=== PATIENT | male | born 1930 | race Caucasian/White ===

== ENCOUNTER 2016-07-29 21:55 | Inpatient (IN) | payer MEDICARE ==
[~2016-07-29] VITALS: Ht 172.7 cm; Wt 75.6 kg
[~2016-07-29 21:55] MED LIST: /AMLO25TA PO; /TAMS4CA OR; ACET65TA PO; ALDA25TA2 PO; AMLO10TAB OR; AMOX500C OR; ASPI81TA83 PO; COLA100C2 PO; DOXY150C PO; LANO0.1211 PO; LASI40TA PO; LEVO500T PO; MILKSUS PO; Oxygen; PRADAXA PO; PRED50TA PO; PROS5TAB OR
[2016-07-29] MEDS ORDERED: FUROSEMIDE 20 MG/2 ML VIAL (J1940) As Ordered ONE (22:29)
[2016-07-29] MEDS ORDERED: IPRATROPIUM 0.5MG/ALBUTEROL 2.5MG INH SOL UD 3ML (DUONEB)(J7620) As Ordered ONE (22:32)
[2016-07-29 22:34] LABS: BASO % 0.3 % (0.0-1.0); EOS % 0.2 % (0.0-3.0); LARGE UNSTAINED CELL # 0.2 K/mm3 (0.0-0.4); LARGE UNSTAINED CELL % 1.5 % (0.0-4.0); LYMPH % 6.6 % (24.0-44.0); MEAN CORPUSCULAR HEMOGLOBIN 27.6 pg (27.0-33.0); MEAN CORPUSCULAR HGB CONC 32.4 g/dl (32.0-36.5); MEAN CORPUSCULAR VOLUME 85.1 fl (80.0-96.0); MONO % 8.3 % (0.0-5.0); NEUTROPHILS # 10.4 K/mm3 (1.8-7.7); NEUTROPHILS % 83.2 % (36.0-66.0); PLATELET COUNT, AUTOMATED 184 k/mm3 (150-450); RED CELL DISTRIBUTION WIDTH 14.1 % (11.5-14.5); WHITE BLOOD COUNT 12.5 K/mm3 (4.0-10.0)
[2016-07-29 22:47] LABS: ANION GAP 7 MEQ/L (8-16); BLOOD UREA NITROGEN 29 MG/DL (7-18); CALCIUM LEVEL 8.4 MG/DL (8.8-10.2); CARBON DIOXIDE LEVEL 35 MEQ/L (21-32); CHLORIDE LEVEL 100 MEQ/L (98-107); CREATININE FOR GFR 1.06 MG/DL (0.70-1.30); GLOMERULAR FILTRATION RATE > 60.0 (>35); GLUCOSE, FASTING 155 MG/DL (83-110); POTASSIUM SERUM 3.5 MEQ/L (3.5-5.1); SODIUM LEVEL 142 MEQ/L (136-145)
[2016-07-29 22:51] LABS: ABG BASE EXCESS 6.6 (-2.0-2.0); ABG DEVICE NASAL CANN; ABG HCO3 30.5 MEQ/L (22.0-26.0); ABG PARTIAL PRESSURE CO2 40.9 mmHg (35.0-45.0); ABG PARTIAL PRESSURE O2 54.3 mmHg (75.0-100.0); ABG STANDARD HCO3 30.3 MEQ/L (22.0-26.0); ABG TOTAL CO2 31.8 MEQ/L (23.0-31.0); ABG pH (ARTERIAL) 7.491 UNITS (7.350-7.450)
[2016-07-29] MEDS ORDERED: ALBUTEROL SULFATE 2.5 MG/0.5 ML INH NEB SOLN As Ordered ONE (23:03)
[2016-07-30] VITALS (7 sets, daily range): BP systolic 127–163; BP diastolic 70–81
[2016-07-30] MEDS ORDERED: FLOM5CAP PO (00:32)
[2016-07-30] MEDS ORDERED: SPIR25TA2 PO (00:32)
[2016-07-30] MEDS ORDERED: DIGO0.12 PO (00:32)
[2016-07-30] MEDS ORDERED: LASI40TA PO (00:32)
[2016-07-30] MEDS ORDERED: IPRASOL4 INH (00:32)
[2016-07-30] MEDS ORDERED: PRAD75CA3 PO (00:32)
[2016-07-30] MEDS ORDERED: ACETAMINOPHEN TAB 650MG DOSE (2X325MG) PO PRN (01:15)
[2016-07-30] MEDS ORDERED: IPRATROPIUM 0.5MG/ALBUTEROL 2.5MG INH SOL UD 3ML (DUONEB)(J7620) NEB PRN (01:15)
[2016-07-30] MEDS ORDERED: ONDANSETRON 4MG/2ML VIAL (J2405) IV PRN (01:15)
--- NOTE | 2016-07-30 01:54 | HPEPDOC ---
General Date of Admission 07/30/2016 Chief Complaint The patient is a 86-year-old male admitted with a reason for visit of Breathing Difficultly. History of Present Illness 86-year-old male with past medical history of diastolic congestive heart failure with whom he follows with Dr. Reyes of cardiology as an outpatient, hypertension, COPD on 5 L of oxygen at home with whom he follows with Dr. Deal of pulmonary as an outpatient, obstructive sleep apnea, atrial fibrillation on Pradaxa, BPH and a history of AAA presented to the ER with a chief complaint of shortness of breath. The patient states that he just got back from [place], [place] after visiting his son for the past 1 month. He reports that his shortness of breath started approximately 7 days ago, and was accompanied by a nonproductive cough. He denies noting any fevers, chest pain, palpitations, or any diaphoresis during this time. The patient states that he was hospitalized in the [place], [place] area for a total of 4 days where he was found to have the flu. He reports that he received supportive treatment and steroids, but states that he still feels the same since when his symptoms initially started. The patient notes that at his baseline, he is able to ambulate around his home without any assistive device while on his 5 L of oxygen. However, over the last 1 week he feels significant shortness of breath as soon as he stands up. The patient denies any other acute symptoms of lightheadedness, dizziness, abdominal pain, or any nausea/vomiting/diarrhea. In the ER, the patient was noted to be hypoxic, with his pulse oximeter readings going into the the 70s when the patient was standing up. The patient will be admitted to the hospitalist service for further management and evaluation of hypoxia secondary to COPD exacerbation. Home Medications Scheduled Dabigatran Etexilate (Pradaxa) 75 Mg Cap 75 MG PO BID (Reported) Digoxin (Digoxin) 0.125 Mg Tab 0.125 MG PO DAILY (Reported) Furosemide (Lasix) 40 Mg Tab 40 MG PO DAILY (Reported) Spironolactone (Spironolactone) 25 Mg Tab 25 MG PO DAILY (Reported) Tamsulosin Hydrochloride (Flomax) 0.4 Mg Cap 1 CAP PO QPM (Reported) once daily 1/2 hour following the same meal each day Scheduled PRN Albuterol/Ipratropium (Ipratropium [place]/Albut 0.5-2.5 (3) mg/3Ml) 1 Dario Dario 1 DARIO INH Q4H PRN PRN SHORTNESS OF BREATH (Reported) Allergies Coded Allergies: No Known Drug Allergy (Verified Allergy, Unknown, 09/23/12) Past Medical History Medical History As noted in HPI. Surgical History Right inguinal hernia repair and umbilical hernia repair in 2001, AAA repair in 2006, cardiac catheterization in 2010 Family History Significant Family History: No pertinent family hx Social History * Smoker: other (smoked a pipe daily for 40 years, quit approximately 15 years ago.) Alcohol: occationally Drugs: denies Currently retired, lives with his in the [place], [place] area Review of Symptoms Other systems 10 point review of systems negative unless otherwise specified in HPI. Physical Examination General Exam: Positive: Alert, Cooperative, No Acute Distress ENT Exam: Positive: Atraumatic, Mucous membr. moist/pink Neck Exam: Negative: JVD Chest Exam: Positive: Diminished, Wheezing (diffuse wheezing noted bilaterally) Heart Exam: Positive: Other (patient noted to have 2/6 systolic murmur noted on the left sternal border.), Tachycardic Abdomen Exam: Positive: Soft, Negative: Tenderness Extremity Exam: Positive: Swelling (2+ pitting edema in the lower she was bilaterally), Negative: Tenderness Vital Signs As noted in EMR. Laboratory Data Labs 24H Laboratory Tests 2 07/29/16 22:12: Anion Gap 7L, B-Type Natriuretic Peptide 87.6, White Blood Count 12.5H, Red Blood Count 5.26, Hemoglobin 14.5, Hematocrit 44.8, Mean Corpuscular Volume 85.1 , Mean Corpuscular Hemoglobin 27.6, Mean Corpuscular Hemoglobin Concent 32.4, Red Cell Distribution Width 14.1, Platelet Count 184, Neutrophils (%) (Auto) 83.2H, Lymphocytes (%) (Auto) 6.6L, Monocytes (%) (Auto) 8.3H, Eosinophils (%) ( Auto) 0.2, Basophils (%) (Auto) 0.3, Neutrophils # (Auto) 10.4H, Lymphocytes # ( Auto) 1.0L, Monocytes # (Auto) 1.0H, Eosinophils # (Auto) 0.0, Basophils # (Auto ) 0.0, Blood Urea Nitrogen 29H, Creatinine 1.06, Sodium Level 142, Potassium Level 3.5, Chloride Level 100, Carbon Dioxide Level 35H, Calcium Level 8.4L, Total Creatine Kinase 61, Creatine Kinase MB 3.0, Creatine Kinase MB Relative Index 4.91H, Glomerular Filtration Rate > 60.0, Large Unclassified Cells # 0.2, Large Unclassified Cells % 1.5, Troponin I 0.04 07/29/16 22:33: Arterial Blood pH 7.491H, Arterial Blood Partial Pressure CO2 40.9, Arterial Blood Partial Pressure O2 54.3L, Arterial Blood Total CO2 31.8H, Arterial Blood HCO3 30.5H, Arterial Blood Base Excess 6.6H, Arterial Blood Oxygen Saturation 89.0L, Blood Gas Bicarbonate Standard 30.3H, Oxygen Delivery Device NASAL ELO CBC/BMP Laboratory Tests 07/29/16 22:12 Calcium Level 8.4 L, Total Creatine Kinase 61, Red Blood Count 5.26, Mean Corpuscular Volume 85.1, Mean Corpuscular Hemoglobin 27.6, Mean Corpuscular Hemoglobin Concent 32.4, Red Cell Distribution Width 14.1, Neutrophils (%) (Auto ) 83.2 H, Lymphocytes (%) (Auto) 6.6 L, Monocytes (%) (Auto) 8.3 H, Eosinophils (%) (Auto) 0.2, Basophils (%) (Auto) 0.3, Neutrophils # (Auto) 10.4 H, Lymphocytes # (Auto) 1.0 L, Monocytes # (Auto) 1.0 H, Eosinophils # (Auto) 0.0, Basophils # (Auto) 0.0 Microbiology Microbiology 07/29/16 Blood Culture, Received Pending 07/29/16 Blood Culture, Received Pending Plan / VTE VTE Prophylaxis Ordered?: Yes (on) Plan Plan Hypoxia secondary to COPD Exacerbation ABG notable for hypoxemia Chest x-ray noted, we will order a CT scan of the chest for better delineation of underlying pulmonary process Blood cultures, sputum cultures, respiratory panel, urine Legionella, strep pneumo studies ordered Given the fact that the patient has not improved with supportive treatment during his recent hospitalization, we will add empiric antibiotics Vancomycin and Zosyn for HCAP Coverage Solumedrol 40 mg IV every 12 hours Continue albuterol, nebulizer therapy, Mucinex Echocardiogram ordered to evaluate underlying cardiac component of shortness of breath We will continue to monitor the patient's respiratory status Hx of Diastolic Congestive Heart Failure Echocardiogram from 2012 notable for diastolic dysfunction Repeat echocardiogram ordered We will hold the patient's Lasix and spironolactone at this time, as he does appear dry with a BUN creatinine ratio of 29/1.06. BNP also noted to be within normal limits Follows with Dr. Reyes of cardiology as an outpatient Hypertension, stable Continue current regimen COPD on 5 L of oxygen at home Cont management as detailed above Follows with Dr. Deal of pulmonary as an outpatient Obstructive sleep apnea Cont CPAP use at night Atrial fibrillation Rate controlled, On Pradaxa BPH Continue Flomax History of AAA repair DVT prophylaxis-already on Pradaxa CODE STATUS-DNR/DNI This patient will be admitted under the service of Dr. Jiang, who will start to follow the patient on 07/30/2016 at 7 AM. ZAHRAA QUIÑONEZ MD Jul 30, 2016 01:54 ZAHRAA QUIÑONEZ MD Jul 30, 2016 01:54
--- NOTE | 2016-07-30 02:00 | REPUSA ---
CT of the chest without contrast Clinical statement: Shortness of breath. Technique: Multiple axial CT images were obtained with 5 mm cuts through the chest without administra tion of contrast. Comparison: 10/01/2011. Findings: There is no thoracic lymphadenopathy. The visualized portions of the thyroid gland is unrem arkable. There are no pericardial or pleural effusions. The lungs are clear. Limited imaging of the u pper abdomen does not demonstrate any acute abnormalities. There are no suspicious osseous lesions. Impression: No acute findings. No acute intrapulmonary disease.
[2016-07-30] MEDS ORDERED: ZOSYN 3.375 GM VIAL (J2543) As Ordered ONE (02:09)
[2016-07-30] MEDS ORDERED: methylPREDNISolone INJ 125 MG/2 ML VIAL (J2930) As Ordered ONE (02:09)
[2016-07-30] MEDS: methylPREDNISolone INJ 40 MG/1 ML VIAL (J2920) IV SCH ×2 (02:15→12:26)
[2016-07-30] MEDS: PIPERACILLIN/TAZOBACTAM SOD 3.375 GM in D5W MINI-BAG PLUS 50 ML IV SCH ×3 (02:16→17:22)
[2016-07-30] MEDS ORDERED: VANCOMYCIN HCL 1,000 MG, VIAL MATE ADAPTER 1 EACH in D5W 250 ML IV SCH (03:00)
[2016-07-30] MEDS ORDERED: VANCOMYCIN 1000 MG/20 ML VIAL (J3370) As Ordered ONE (03:24)
[2016-07-30] MEDS ORDERED: IPRATROPIUM 0.5MG/ALBUTEROL 2.5MG INH SOL UD 3ML (DUONEB)(J7620) As Ordered ONE ×2 (03:25→10:42)
[2016-07-30] MEDS: IPRATROPIUM 0.5MG/ALBUTEROL 2.5MG INH SOL UD 3ML (DUONEB)(J7620) NEB SCH ×5 (03:27→20:00)
--- NOTE | 2016-07-30 05:23 | PHACANCOPD ---
PHARMACY VANCOMYCIN DOSING Pt Demographics Demographics Patient Age:86 , Weight:73.700 , Gender: male Adjusted Body Weight Date: 07/30/16, Adjusted Body Weight: [70.52] Kg Vancomycin Vancomycin indication: PNEUMONIA Vancomycin Target Ranges: 15-20 mcg/ml Vancomycin Load Y/N: No Load Dose Date Time Vancomycin Load Dose: Date: Time: Vancomycin Dose Date: 07/30/16. Current Vancomycin Dose: [750MG q12h] Intermittent Dosing?: No Labs Labs Laboratory Tests 07/29/16 22:12 Calcium Level 8.4 L, Total Creatine Kinase 61, Red Blood Count 5.26, Mean Corpuscular Volume 85.1, Mean Corpuscular Hemoglobin 27.6, Mean Corpuscular Hemoglobin Concent 32.4, Red Cell Distribution Width 14.1, Neutrophils (%) (Auto ) 83.2 H, Lymphocytes (%) (Auto) 6.6 L, Monocytes (%) (Auto) 8.3 H, Eosinophils (%) (Auto) 0.2, Basophils (%) (Auto) 0.3, Neutrophils # (Auto) 10.4 H, Lymphocytes # (Auto) 1.0 L, Monocytes # (Auto) 1.0 H, Eosinophils # (Auto) 0.0, Basophils # (Auto) 0.0 Micro Microbiology 07/29/16 Blood Culture, Received Pending 07/29/16 Blood Culture, Received Pending Creatinine Clearance Date:07/30/16. Creatinine Clearance: [48]CALCULATED. Pending Labs TROUGH ORDERED FOR 07/31@1700 Assessment and Plan Maintaining Current Dose?: Yes Reason for dose change: No Dose Change Pharmacist Note Pharmacist Note Date: 07/30/16. Pharmacist note:86 YOM SCR=1.06 Calculated CRCL=48:admitted w/sob /pneumonia: treating w/pip/tazo 3.375 q8h& Vancomycin 1 gmX1in ED, then 750mg IV Q12H,trough scheduled prior to 4h dose (07/31@1700):will continue to monitor SCR and levels ZAYDA [facility] Jul 30, 2016 05:22
[2016-07-30 07:03] LABS: MEAN CORPUSCULAR HEMOGLOBIN 27.3 pg (27.0-33.0); MEAN CORPUSCULAR VOLUME 85.4 fl (80.0-96.0); RED CELL DISTRIBUTION WIDTH 13.8 % (11.5-14.5); WHITE BLOOD COUNT 10.9 K/mm3 (4.0-10.0)
[2016-07-30 07:27] LABS: ANION GAP 7 MEQ/L (8-16); BLOOD UREA NITROGEN 31 MG/DL (7-18); CALCIUM LEVEL 8.2 MG/DL (8.8-10.2); CARBON DIOXIDE LEVEL 34 MEQ/L (21-32); CHLORIDE LEVEL 98 MEQ/L (98-107); CREATININE FOR GFR 1.11 MG/DL (0.70-1.30); GLOMERULAR FILTRATION RATE > 60.0 (>35); GLUCOSE, FASTING 163 MG/DL (83-110); MAGNESIUM LEVEL 2.4 MG/DL (1.8-2.4); POTASSIUM SERUM 3.4 MEQ/L (3.5-5.1); SODIUM LEVEL 139 MEQ/L (136-145)
[2016-07-30] MEDS: ADVAIR DISKUS 250/50 INH PWD INH SCH ×2 (08:24→21:37)
[2016-07-30] MEDS: guaiFENesin ER 600 MG TAB PO SCH ×2 (08:30→22:18)
[2016-07-30] MEDS: DIGOXIN 0.125 MG TAB PO SCH (08:30)
[2016-07-30] MEDS: DABIGATRAN ETEXILATE 75 MG CAP (PRADAXA) PO SCH ×2 (08:30→22:18)
--- NOTE | 2016-07-30 08:57 | REP ---
AP PORTABLE CHEST: 07/29/2016 at 10:41 PM. Clinical history: Dyspnea. Comparison chest x-rays 04/01/2013, 10/05/2011, CT angiogram 10/01/2011. Findings: Lungs are hyperinflated with changes of COPD. Blunting of the right CP angle which could be scar or effusion. Epicardial fat pad along the left heart border to the chest wall as on previous CT and chest x-ray. Hyperinflation with COPD and fibrosis seen. There is venous hypertension but no charlette edema. Pulmonary artery hypertension is noted and prominent. There is no gross cardiomegaly. The aorta is tortuous and ectatic but without interval change. Airway intact. Degenerative changes in the shoulders and spine. Impression: 1. Hyperinflation with COPD and some minor fibrotic change. There is blunting of the right CP angle which may be a small effusion or scar. 2. Pulmonary hypertension, tortuous calcified aorta, but no charlette edema, dense consolidation or other acute finding. Signed by Wander Lopez MD 07/30/2016 07:25 P
[2016-07-30] MEDS ORDERED: FUROSEMIDE 40 MG TAB PO SCH (09:00)
[2016-07-30] MEDS ORDERED: ENOXAPARIN 30 MG/0.3 ML SYR (J1650) SC SCH (09:00)
[2016-07-30] MEDS ORDERED: SPIRONOLACTONE 25 MG TAB PO SCH (09:00)
[2016-07-30] MEDS ORDERED: POTASSIUM CHLORIDE 10 MEQ SR TABLET PO ONE (13:15)
--- NOTE | 2016-07-30 13:51 | EDDOCDS ---
Physician Documentation [facility] Name: Nilson Knight Age: 86 yrs Sex: Male : 1930 Arrival Date: 07/29/2016 Time: 21:55 Bed Admit Hold Private MD: Haja Frazier Disposition: 07/29/16 23:35 Hospitalization ordered by Clemente Christian for Inpatient Admission. Preliminary diagnosis is Chronic obstructive pulmonary disease with (acute) exacerbation. - Bed requested for PCU. - Status is Inpatient Admission. dy - Condition is Stable. - Problem is an acute exacerbation. - Symptoms are unchanged. Historical: - Allergies: no known allergies; - Home Meds: 1. spironolactone Oral once daily 2. tamsulosin 0.4 mg oral cp24 1 cap once daily 3. digoxin 125 mcg Oral tab 1 tab once daily 4. prednisone 10 mg Oral DsPk daily 5. Pradaxa 75 mg oral cap 1 cap 2 times per day 6. Lasix 40 mg Oral tab 1 tab once daily - PSHx: Thyroid Surgery; Appendectomy; - Social history: Smoking status: Patient states former smoker of tobacco. No barriers to communication noted, The patient speaks fluent Bengali. - Family history: No immediate family members are acutely ill. - : The pt / caregiver states he / she is on anticoagulants: Pradaxa (Dabigatran). - Exposure Risk Screening:: None identified. Vital Signs: 07/29 22:02 BP 157 / 88; Pulse 93; Resp 28; Pulse Ox 74% ; sew 22:15 Pulse 105 MON; Pulse Ox 87% ; mv5 22:30 Pulse 105 MON; Pulse Ox 88% ; mv5 22:45 Pulse 104 MON; Pulse Ox 87% ; mv5 23:40 BP 131 / 61 (auto/); mv5 23:40 Pulse 113 MON; Pulse Ox 84% ; mv5 23:45 BP 146 / 64 (auto/); mv5 23:46 Pulse 112 MON; Pulse Ox 83% ; mv5 23:51 BP 139 / 63 (auto/); mv5 23:51 Pulse 111 MON; Pulse Ox 84% ; mv5 07/30 00:06 BP 119 / 57 (auto/); mv5 00:06 Pulse 109 MON; mv5 00:21 BP 137 / 63 (auto/); mv5 00:22 Pulse 109 MON; mv5 00:36 BP 130 / 65 (auto/); mv5 00:36 Pulse 131 MON; mv5 00:51 BP 127 / 59 (auto/); mv5 00:51 Pulse 110 MON; Pulse Ox 92% on 4 lpm NC; mv5 01:21 BP 121 / 66 (auto/); mv5 01:21 Pulse 111 MON; Pulse Ox 87% ; mv5 MDM: 07/29 22:04 ECG WITH READING ER PHYS+CARDIAG ordered. EDMS 22:22 -Blood Culture (Adults Only), peripheral from different site, or from device/port/PICC ke etc. if present ordered. 22:22 Call Respiratory ordered. ke 22:22 Rim Turning Machine Operator/Pulse Ox/q 15 min VS ordered. ke 22:22 IV Saline Lock ordered. ke 22:22 Oxygen at 4L/Min NC or Home dosage ordered. ke 22:22 Rhythm Strip to chart ordered. ke 22:22 Albuterol 5 mg Nebulizer once ordered. ke 22:22 Albuterol-Ipratropium 3 ml Inhalation once ordered. ke 22:22 Furosemide 40 mg IVP once ordered. ke 22:23 Chest, 1 View Ordered. EDMS 22:23 -Blood Culture Ordered. EDMS 22:23 B-Type Natiuretic Peptide Ordered. EDMS 22:23 Basic Metabolic Profile Ordered. EDMS 22:23 CBC with Diff Ordered. EDMS 22:23 Cardiac Injury Profile Ordered. EDMS 22:23 Troponin Ordered. EDMS 22:23 -Arterial Blood Gas Ordered. EDMS 22:27 -Blood Culture (Adults Only), peripheral from different site, or from device/port/PICC jlm etc. if present complete. 22:27 BLOOD CULTURES Ordered. EDMS 22:29 Call Respiratory complete. jlm 23:02 Financial registration complete. gjb 23:05 [facility] [place] Agreement was scanned into [employer] and attached to record. gjb 23:29 Basic Metabolic Profile Reviewed. ke 23:29 CBC with Diff Reviewed. ke 23:29 Cardiac Injury Profile Reviewed. ke 23:29 -Arterial Blood Gas Reviewed. ke 23:29 B-Type Natiuretic Peptide Reviewed. ke 23:29 Troponin Reviewed. ke 23:34 BED REQUEST+ADM ordered. EDMS 07/30 01:20 TROPONIN Ordered. EDMS 01:20 TROPONIN Ordered. EDMS 01:20 TROPONIN Ordered. EDMS 01:20 LEGIONELLA ANTIGEN URINE Ordered. EDMS 01:20 URINE STREP PNEUMONIAE ANTIGEN Ordered. EDMS 01:20 RESPIRATORY PANEL Ordered. EDMS 01:20 SPUTUM CULTURE AND GRAM STAIN Ordered. EDMS 01:21 PHYSICAL THERAPY EVAL & TREAT ordered. EDMS 01:23 Admission / Observation Status ordered. EDMS 01:23 ECHOCARD,DOPPLER/COLOR FLOW ordered. EDMS 01:23 CT Chest without contrast Ordered. EDMS 01:23 2 GRAM SODIUM DIET ordered. EDMS 02:57 COMPLETE BLOOD COUNT Ordered. EDMS 05:01 BASIC METABOLIC PROFILE Ordered. EDMS 05:01 MAGNESIUM LEVEL Ordered. EDMS 10:23 T-Sheet-- Draft Copy was scanned into [employer] and attached to record. Administered Medications: 07/29 22:30 Drug: Furosemide 40 mg [furosemide 10 mg/mL injection solution (4 mL)] Route: IVP; [facility] Site: right antecubital; 22:55 Follow up: Response: No Adverse Reaction [facility] 07/30 00:42 Follow up: Response: No Adverse Reaction [facility] 07/29 22:51 Drug: Albuterol-Ipratropium 3 ml [ipratropium-albuterol 0.5 mg-3 mg(2.5 mg base)/3 mL [facility] nebulization soln (3 mL)] Route: Inhalation; 23:05 Drug: Albuterol 5 mg [albuterol sulfate 2.5 mg/0.5 mL solution for nebulization (1 mL)] [facility] Route: Nebulizer; Signatures: Dispatcher [facility] Nallely Oakes, Chemist Steroids Unit Linnea Orozco RN TYLER [facility] Milly Beck, Jose C Reg Raj Bartholomew, RN Sd Nielsen, FUEL SYSTEM MAINTENANCE SUPERVISOR FUEL SYSTEM MAINTENANCE SUPERVISOR Princess Sherwood, Chemist Steroids Unit Mariaa Miranda Lisa, RN RN lmg Vannedery, Megan, RN RN mv5 Hollis, Jacob [facility] Ericka Piper RN [facility] The chart was reviewed and I authenticate all verbal orders and agree with the evaluation and treatment provided.Corrections: (The following items were deleted from the chart) 07/30 01:33 01:20 BLOOD CULTURES ordered. EDND EDMS 05:01 02:57 BASIC METABOLIC PROFILE ordered. EDMS EDMS 05:01 02:57 MAGNESIUM LEVEL ordered. EDMS EDMS Attachments: 07/29 23:05 [facility] Payment Agreement gjb 07/30 10:23 T-Sheet-- Draft Copy gb MTDD
--- NOTE | 2016-07-30 13:53 | EDDOCDS ---
Nurse's Notes [facility] Name: Nilson Knight Age: 86 yrs Sex: Male : 1930 Arrival Date: 07/29/2016 Time: 21:55 Bed Admit Hold Private MD: Haja Frazier Diagnosis: Chronic obstructive pulmonary disease with (acute) exacerbation Presentation: 07/29 22:03 Presenting complaint: Patient states: Has had the flu for about a week now--was [facility] hospitalized in [place]--just arrived from [place]. Adult Sepsis Screening: The patient does not have new or worsening altered mentation. Patient has a respiratory rate of greater than or equal to 22 (1 point). Systolic blood pressure is greater than 100. Patient has a qSOFA score of 0- Negative Sepsis Screen. Suicide/Homicide risk assessment- the patient denies having any suicidal and/or homicidal ideations and does not present with any other emotional, behavioral or mental health complaints. 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 Transition of care: patient was not received from another setting of care. 22:03 Acuity: RACIEL Level 2 [facility] 22:03 Method Of Arrival: Walkin/Carried/Asstd [facility] Triage Assessment: 22:05 General: Appears in no apparent distress, Behavior is cooperative. Pain: Denies pain. [facility] Neurological: No deficits noted. Respiratory: Onset: The symptoms/episode began/occurred last monday, Airway is patent Respiratory effort is even, unlabored. Derm: Skin is pink, warm & dry. Historical: - Allergies: no known allergies; - Home Meds: 1. spironolactone Oral once daily 2. tamsulosin 0.4 mg oral cp24 1 cap once daily 3. digoxin 125 mcg Oral tab 1 tab once daily 4. prednisone 10 mg Oral DsPk daily 5. Pradaxa 75 mg oral cap 1 cap 2 times per day 6. Lasix 40 mg Oral tab 1 tab once daily - PSHx: Thyroid Surgery; Appendectomy; - Social history: Smoking status: Patient states former smoker of tobacco. No barriers to communication noted, The patient speaks fluent [place]. - Family history: No immediate family members are acutely ill. - : The pt / caregiver states he / she is on anticoagulants: Pradaxa (Dabigatran). - Exposure Risk Screening:: None identified. Screenin:16 Screening information is obtained from the patient. Fall risk: No risks identified. mv5 Assistance ADL's: requires no assistance with activities of daily living. Abuse/DV Screen: The patient / caregiver reports he/she is: not in a situation that causes fear, pain or injury. Nutritional screening: No deficits noted. home support is adequate. 07/30 01:21 Advance Directives: There is no active DNR order. mv5 Assessment: 07/29 22:16 General: Appears in no apparent distress, comfortable, well nourished, well groomed, mv5 Family at bedside.. Pain: Denies pain. Neurological: Level of Consciousness is awake, alert, Oriented to person, place, time. Cardiovascular: Capillary refill < 3 seconds Heart tones S1 S2 present Pulses are all present. Rhythm is atrial fibrillation. Cardiovascular: Chest pain is denied. Respiratory: Airway is patent Respiratory effort is even, unlabored, Respiratory pattern is regular, symmetrical, on 5LNC per home O2 routine. Breath sounds are diminished bilaterally. Derm: Skin is pink, warm & dry. 23:35 General: Appears in no apparent distress, Family at bedside.. Neurological: Level of mv5 Consciousness is awake, alert, Oriented to person, place, time. Cardiovascular: Capillary refill < 3 seconds Rhythm is sinus arrythmia. Respiratory: Airway is patent Respiratory effort is even, unlabored, Respiratory pattern is regular, symmetrical, Respiratory: Reports shortness of breath on exertion Pt had increased work of breathing after standing at bedside to use urinal. Derm: Skin is pink, warm & dry. 07/30 00:40 General: Appears in no apparent distress, comfortable. Neurological: Level of mv5 Consciousness is awake, alert, Oriented to person, place, time. Cardiovascular: Rhythm is sinus arrythmia Chest pain is denied. Respiratory: Airway is patent Respiratory effort is even, unlabored, Respiratory pattern is regular, symmetrical. Derm: Skin is pink, warm & dry. 01:31 General: Appears in no apparent distress. Neurological: Level of Consciousness is mv5 awake, alert, Oriented to person, place, time. Respiratory: Airway is patent Respiratory effort is even, unlabored, Respiratory pattern is regular, symmetrical. Derm: Skin is pink, warm & dry. Vital Signs: 07/29 22:02 BP 157 / 88; Pulse 93; Resp 28; Pulse Ox 74% ; sew 22:15 Pulse 105 MON; Pulse Ox 87% ; mv5 22:30 Pulse 105 MON; Pulse Ox 88% ; mv5 22:45 Pulse 104 MON; Pulse Ox 87% ; mv5 23:40 BP 131 / 61 (auto/); mv5 23:40 Pulse 113 MON; Pulse Ox 84% ; mv5 23:45 BP 146 / 64 (auto/); mv5 23:46 Pulse 112 MON; Pulse Ox 83% ; mv5 23:51 BP 139 / 63 (auto/); mv5 23:51 Pulse 111 MON; Pulse Ox 84% ; mv5 0211 00:06 BP 119 / 57 (auto/); mv5 00:06 Pulse 109 MON; mv5 00:21 BP 137 / 63 (auto/); mv5 00:22 Pulse 109 MON; mv5 00:36 BP 130 / 65 (auto/); mv5 00:36 Pulse 131 MON; mv5 00:51 BP 127 / 59 (auto/); mv5 00:51 Pulse 110 MON; Pulse Ox 92% on 4 lpm NC; mv5 01:21 BP 121 / 66 (auto/); mv5 01:21 Pulse 111 MON; Pulse Ox 87% ; mv5 Vitals: 07/29 22:02 Log In Time: July 29, 2016 at 22:02. RN notified that patient meets Red Flag sew criteria. ED Course: 22:02 Lisa Dee,RN is Primary Nurse. sew 22:02 Patient visited by Meera Leblanc. sew 22:02 Haja Frazier is Private Physician. sew 22:02 Patient visited by Meera Leblanc. sew 22:02 Patient moved to 1 [facility] 22:04 Triage Initiated mcp 22:07 Patient visited by Linnea Ren, TYLER. [facility] 22:09 Pt greeted and oriented to ED. Patient advised of names of staff involved in care, rs6 location of call post, wait times and NPO status. Accompanied by Family Member, Significant Other, Patient has correct armband on for positive identification. Placed in gown. Bed in low position. Call light in reach. Side rails up X 1. school lunch monitor on. Pulse ox on. NIBP on. 22:09 EKG done. (by ED staff). Reviewed by Rosas Mcconnell DO. rs6 22:10 Patient visited by Ludmila Lopez PCA. rs6 22:14 [facility] ke 22:14 Patient visited by Sd Suarez FNP. ke 22:14 Patient visited by Sd Suarez FNP. ke 22:16 The patient / caregiver is instructed regarding the plan of care and ED course. mv5 22:16 Inserted saline lock: 20 gauge in right antecubital area and blood collected. The mv5 patient tolerated the procedure well. 22:28 Troponin Sent. mv5 22:28 Cardiac Injury Profile Sent. mv5 22:28 CBC with Diff Sent. mv5 22:28 B-Type Natiuretic Peptide Sent. mv5 22:28 Basic Metabolic Profile Sent. mv5 22:47 Patient visited by Sd Suarez FNP. ke 22:51 -Arterial Blood Gas Sent. jh6 22:55 BLOOD CULTURES Sent. mv5 23:05 [facility] Payment Agreement was scanned into [employer] and attached to record. gjb 23:28 Patient visited by Sd Suarez FNP. ke 23:34 Clemente Christian is Hospitalizing Provider. 07/30 01:21 Report given to Report to Gladis Salguero RN. mv5 01:21 No procedures done that require assistance. mv5 01:34 Patient moved to 21 kmg1 02:32 CT Chest without contrast Returned. EDMS 06:32 Patient moved to Admit Hold kmg1 07:28 Primary Nurse role handed off by Lisa Dee RN mlb1 09:21 Chest, 1 View Returned. EDMS 10:23 T-Sheet-- Draft Copy was scanned into [employer] and attached to record. 12:03 Bobby Hairston MD is Attending Physician. pc Administered Medications: 07/29 22:30 Drug: Furosemide 40 mg [furosemide 10 mg/mL injection solution (4 mL)] Route: IVP; [facility] Site: right antecubital; 22:55 Follow up: Response: No Adverse Reaction [facility] 07/30 00:42 Follow up: Response: No Adverse Reaction [facility] 07/29 22:51 Drug: Albuterol-Ipratropium 3 ml [ipratropium-albuterol 0.5 mg-3 mg(2.5 mg base)/3 mL [facility] nebulization soln (3 mL)] Route: Inhalation; 23:05 Drug: Albuterol 5 mg [albuterol sulfate 2.5 mg/0.5 mL solution for nebulization (1 mL)] jh6 Route: Nebulizer; RT: 22:45 ABG's drawn from left radial artery pressure held for 5 minutes no bleeding noted jh6 pressure bandage applied specimen sent pt. tolerated well. 22:50 Initial Med Neb Given as ordered Patient was instructed and evaluated on procedure jh6 Patient tolerated procedure well without adverse effect. Respiratory: Airway is patent Respiratory effort is even, unlabored, Respiratory pattern is regular symmetrical, Breath sounds are coarse in right upper lobe, left upper lobe, right middle lobe, left lower lobe and right lower lobe. 23:06 Respiratory: Airway is patent Respiratory effort is even, unlabored, Respiratory jh6 pattern is regular symmetrical, Breath sounds with crackles in left posterior upper lobe, right posterior upper lobe, left posterior lower lobe, right posterior middle lobe and right posterior lower lobe Breath sounds are diminished in left posterior upper lobe, right posterior upper lobe, left posterior lower lobe, right posterior middle lobe and right posterior lower lobe. 23:16 Respiratory: Airway is patent Respiratory effort is even, labored, Respiratory pattern jh6 is regular symmetrical, Breath sounds with crackles in right upper lobe, left upper lobe, right middle lobe, left lower lobe and right lower lobe Breath sounds are diminished in right upper lobe, left upper lobe, right middle lobe, left lower lobe and right lower lobe. Order Results: Lab Order: B-Type Natiuretic Peptide; SPEC'M 07/29/16 22:12 Test: BRAIN NATRIURETIC PEPTIDE; Value: 87.6; Range: <100; Units: PG/ML; Status: F Lab Order: Basic Metabolic Profile; SPEC'M 07/29/16 22:12 Test: GLUCOSE, FASTING; Value: 155; Range: 83-110; Abnormal: Above high normal; Units: MG/DL; Status: F Test: BLOOD UREA NITROGEN; Value: 29; Range: 7-18; Abnormal: Above high normal; Units: MG/DL; Status: F Test: CREATININE FOR GFR; Value: 1.06; Range: 0.70-1.30; Units: MG/DL; Status: F Test: GLOMERULAR FILTRATION RATE; Value: > 60.0; Range: >35; Status: F Test: SODIUM LEVEL; Value: 142; Range: 136-145; Units: MEQ/L; Status: F Test: POTASSIUM SERUM; Value: 3.5; Range: 3.5-5.1; Units: MEQ/L; Status: F Test: CHLORIDE LEVEL; Value: 100; Range: 98-107; Units: MEQ/L; Status: F Test: CARBON DIOXIDE LEVEL; Value: 35; Range: 21-32; Abnormal: Above high normal; Units: MEQ/L; Status: F Test: ANION GAP; Value: 7; Range: 8-16; Abnormal: Below low normal; Units: MEQ/L; Status: F Test: CALCIUM LEVEL; Value: 8.4; Range: 8.8-10.2; Abnormal: Below low normal; Units: MG/DL; Status: F Test Note: ; Units are mL/min/1.73 m2 Chronic Kidney Disease Staging per NKF: Stage I & II GFR >=60 Normal to Mildly Decreased Stage III GFR 30-59 Moderately Decreased Stage IV GFR 15-29 Severely Decreased Stage V GFR <15 Very Little GFR Left ESRD GFR <15 on ASSISTANT GM OF CONTENT & DELIVERY Lab Order: CBC with Diff; SPEC'M 07/29/16 22:12 Test: WHITE BLOOD COUNT; Value: 12.5; Range: 4.0-10.0; Abnormal: Above high normal; Units: K/mm3; Status: F Test: RED BLOOD COUNT; Value: 5.26; Range: 4.30-6.10; Units: M/mm3; Status: F Test: HEMOGLOBIN; Value: 14.5; Range: 14.0-18.0; Units: g/dl; Status: F Test: HEMATOCRIT; Value: 44.8; Range: 42.0-52.0; Units: %; Status: F Test: MEAN CORPUSCULAR VOLUME; Value: 85.1; Range: 80.0-96.0; Units: fl; Status: F Test: MEAN CORPUSCULAR HEMOGLOBIN; Value: 27.6; Range: 27.0-33.0; Units: pg; Status: F Test: MEAN CORPUSCULAR HGB CONC; Value: 32.4; Range: 32.0-36.5; Units: g/dl; Status: F Test: RED CELL DISTRIBUTION WIDTH; Value: 14.1; Range: 11.5-14.5; Units: %; Status: F Test: PLATELET COUNT, AUTOMATED; Value: 184; Range: 150-450; Units: k/mm3; Status: F Test: NEUTROPHILS %; Value: 83.2; Range: 36.0-66.0; Abnormal: Above high normal; Units: %; Status: F Test: LYMPH %; Value: 6.6; Range: 24.0-44.0; Abnormal: Below low normal; Units: %; Status: F Test: MONO %; Value: 8.3; Range: 0.0-5.0; Abnormal: Above high normal; Units: %; Status: F Test: EOS %; Value: 0.2; Range: 0.0-3.0; Units: %; Status: F Test: BASO %; Value: 0.3; Range: 0.0-1.0; Units: %; Status: F Test: LARGE UNSTAINED CELL %; Value: 1.5; Range: 0.0-4.0; Units: %; Status: F Test: NEUTROPHILS #; Value: 10.4; Range: 1.8-7.7; Abnormal: Above high normal; Units: K/mm3; Status: F Test: LYMPH #; Value: 1.0; Range: 1.5-4.5; Abnormal: Below low normal; Units: K/mm3; Status: F Test: MONO #; Value: 1.0; Range: 0.0-0.8; Abnormal: Above high normal; Units: K/mm3; Status: F Test: EOS #; Value: 0.0; Range: 0.0-0.50; Units: K/mm3; Status: F Test: BASO #; Value: 0.0; Range: 0.0-0.2; Units: K/mm3; Status: F Test: LARGE UNSTAINED CELL #; Value: 0.2; Range: 0.0-0.4; Units: K/mm3; Status: F Lab Order: Cardiac Injury Profile; SPEC'M 07/29/16 22:12 Test: CPK CREATINE PHOSPHOKINASE; Value: 61; Range: 39-308; Units: U/L; Status: F Test: CK-MB VALUE MASS; Value: 3.0; Range: 0.0-3.6; Units: NG/ML; Status: F Test: MB/CK RELATIVE INDEX; Value: 4.91; Range: < OR =4; Abnormal: Above high normal; Status: F Test Note: ; DIAGNOSIS CRITERIA MMB ng/ml Relative Index (RI) NON-AMI < or = 5 N/A [place] > 5 < or = 4 AMI > 5 > 4 Lab Order: Troponin; [facility]' 07/29/16 22:12 Test: TROPONIN I; Value: 0.04; Range: < 0.10; Units: NG/ML; Status: F Test Note: ; Troponin I Reference Interval for [employer] LOCI: 99th Percentile= 0.00-0.045 ng/ml Risk Stratification: <= 0.10 ng/ml Decreased Risk for Adverse Clinical Events. 0.10-1.50 ng/ml Increased Risk for Adverse Clinical Events. Evaluation of additional criterion and/or repeat testing in 2-6 hours is suggested to rule out myocardial damage. >= 1.50 ng/ml Indicative of Myocardial Injury. Lab Order: -Arterial Blood Gas; [facility]' 07/29/16 22:33 Test: ABG pH (ARTERIAL); Value: 7.491; Range: 7.350-7.450; Abnormal: Above high normal; Units: UNITS; Status: F Test: ABG PARTIAL PRESSURE CO2; Value: 40.9; Range: 35.0-45.0; Units: mmHg; Status: F Test: ABG PARTIAL PRESSURE O2; Value: 54.3; Range: 75.0-100.0; Abnormal: Below low normal; Units: mmHg; Status: F Test: ABG TOTAL CO2; Value: 31.8; Range: 23.0-31.0; Abnormal: Above high normal; Units: MEQ/L; Status: F Test: ABG HCO3; Value: 30.5; Range: 22.0-26.0; Abnormal: Above high normal; Units: MEQ/L; Status: F Test: ABG BASE EXCESS; Value: 6.6; Range: -2.0-2.0; Abnormal: Above high normal; Status: F Test: ABG STANDARD HCO3; Value: 30.3; Range: 22.0-26.0; Abnormal: Above high normal; Units: MEQ/L; Status: F Test: ABG O2 SATURATION; Value: 89.0; Range: 95.0-99.0; Abnormal: Below low normal; Units: %; Status: F Test: ABG DEVICE; Value: NASAL ELO; Status: F Lab Order: TROPONIN; [facility]07/30/16 06:29 Test: TROPONIN I; Value: 0.04; Range: < 0.10; Units: NG/ML; Status: F Test Note: ; Troponin I Reference Interval for [employer] LOCI: 99th Percentile= 0.00-0.045 ng/ml Risk Stratification: <= 0.10 ng/ml Decreased Risk for Adverse Clinical Events. 0.10-1.50 ng/ml Increased Risk for Adverse Clinical Events. Evaluation of additional criterion and/or repeat testing in 2-6 hours is suggested to rule out myocardial damage. >= 1.50 ng/ml Indicative of Myocardial Injury. Lab Order: COMPLETE BLOOD COUNT; [facility]07/30/16 06:29 Test: WHITE BLOOD COUNT; Value: 10.9; Range: 4.0-10.0; Abnormal: Above high normal; Units: K/mm3; Status: F Test: RED BLOOD COUNT; Value: 5.06; Range: 4.30-6.10; Units: M/mm3; Status: F Test: HEMOGLOBIN; Value: 13.8; Range: 14.0-18.0; Abnormal: Below low normal; Units: g/dl; Status: F Test: HEMATOCRIT; Value: 43.2; Range: 42.0-52.0; Units: %; Status: F Test: MEAN CORPUSCULAR VOLUME; Value: 85.4; Range: 80.0-96.0; Units: fl; Status: F Test: MEAN CORPUSCULAR HEMOGLOBIN; Value: 27.3; Range: 27.0-33.0; Units: pg; Status: F Test: MEAN CORPUSCULAR HGB CONC; Value: 32.0; Range: 32.0-36.5; Units: g/dl; Status: F Test: RED CELL DISTRIBUTION WIDTH; Value: 13.8; Range: 11.5-14.5; Units: %; Status: F Test: PLATELET COUNT, AUTOMATED; Value: 135; Range: 150-450; Abnormal: Below low normal; Units: k/mm3; Status: F Lab Order: BASIC METABOLIC PROFILE; SPEC'07/30/16 06:29 Test: GLUCOSE, FASTING; Value: 163; Range: 83-110; Abnormal: Above high normal; Units: MG/DL; Status: F Test: BLOOD UREA NITROGEN; Value: 31; Range: 7-18; Abnormal: Above high normal; Units: MG/DL; Status: F Test: CREATININE FOR GFR; Value: 1.11; Range: 0.70-1.30; Units: MG/DL; Status: F Test: GLOMERULAR FILTRATION RATE; Value: > 60.0; Range: >35; Status: F Test: SODIUM LEVEL; Value: 139; Range: 136-145; Units: MEQ/L; Status: F Test: POTASSIUM SERUM; Value: 3.4; Range: 3.5-5.1; Abnormal: Below low normal; Units: MEQ/L; Status: F Test: CHLORIDE LEVEL; Value: 98; Range: 98-107; Units: MEQ/L; Status: F Test: CARBON DIOXIDE LEVEL; Value: 34; Range: 21-32; Abnormal: Above high normal; Units: MEQ/L; Status: F Test: ANION GAP; Value: 7; Range: 8-16; Abnormal: Below low normal; Units: MEQ/L; Status: F Test: CALCIUM LEVEL; Value: 8.2; Range: 8.8-10.2; Abnormal: Below low normal; Units: MG/DL; Status: F Test Note: ; Units are mL/min/1.73 m2 Chronic Kidney Disease Staging per NKF: Stage I & II GFR >=60 Normal to Mildly Decreased Stage III GFR 30-59 Moderately Decreased Stage IV GFR 15-29 Severely Decreased Stage V GFR <15 Very Little GFR Left ESRD GFR <15 on ASSISTANT GM OF CONTENT & DELIVERY Lab Order: MAGNESIUM LEVEL; SPEC'M 07/30/16 06:29 Test: MAGNESIUM LEVEL; Value: 2.4; Range: 1.8-2.4; Units: MG/DL; Status: F Radiology Order: Chest, 1 View Test: Chest, 1 View REASON FOR EXAMINATION: Shortness of Breath; AP portable chest: 07/29/2016 at 10:41 p.m.; ; Clinical history: Dyspnea.; ; Comparison chest x-rays 04/01/2013, 10/05/2011, CT angiogram 10/01/2011.; ; Findings: Lungs are hyperinflated with changes of COPD. Blunting of the right; CP angle which could be scar or effusion. Epicardial fat pad along the left; heart border to the chest wall as on previous CT and chest x-ray. Hyperinflation; with COPD and fibrosis seen. There is venous hypertension but no charlette edema.; Pulmonary artery hypertension is noted and prominent. There is no gross; cardiomegaly. The aorta is tortuous and ectatic but without interval change.; Airway intact. Degenerative changes in the shoulders and spine.; ; Impression:; 1. Hyperinflation with COPD and some minor fibrotic change. There is blunting; of the right CP angle which may be a small effusion or scar.; 2. Pulmonary hypertension, tortuous calcified aorta, but no charlette edema, dense; consolidation or other acute finding.; ; Unreviewed; Radiology Order: CT Chest without contrast Test: CT Chest without contrast REASON FOR EXAMINATION: SOB; ; CT of the chest without contrast; Clinical statement: Shortness of breath.; Technique: Multiple axial CT images were obtained with 5 mm cuts through the chest without administra; tion of contrast.; Comparison: 10/01/2011.; Findings: There is no thoracic lymphadenopathy. The visualized portions of the thyroid gland is unrem; arkable. There are no pericardial or pleural effusions. The lungs are clear. Limited imaging of the u; pper abdomen does not demonstrate any acute abnormalities. There are no suspicious osseous lesions.; Impression: No acute findings. No acute intrapulmonary disease.; ; Outcome: 23:35 Decision to Hospitalize by Provider. 07/30 13:51 Patient left the ED. dy Signatures: Dispatcher [employer] EDMS Bobby Hairston MD MD pc Garrison, Kelly, RN RN kmg1 Linnea Ren RN RN Milly Gonsales, Raj Coto, RN RN dy Sd Suarez, PROFESSIONAL SERVICES SPECIALIST PROFESSIONAL SERVICES SPECIALIST Rudy Gupta RN RN mlb1 Teddy Welch jh6 Ericka PiperRN RN cj Benji, Ludmila Jimenez, TAIL PULLER TAIL PULLER rs6 Mariaa Samuel Megan,RN RN mv5 Corrections: (The following items were deleted from the chart) 07/29 23:37 22:35 Cardiovascular: mv5 mv5 MTDD
--- NOTE | 2016-07-30 14:40 | ECGEPIP ---
Stationary ECG Study [facility] - ED Test Date: 2016-07-29 Pat Name: SUNSHINE ANDRADE Department: Room: [place] [address] Gender: M Revenue Specialist: aditya : 1930 Requested By: MALVIN Albarran Order Number: [id number] Reading MD: Shahbaz Mckinney Measurements Intervals [place] Rate: 105 P: 47 MO: 175 QRS: -49 QRSD: 90 T: 67 QT: 320 QTc: 424 Interpretive Statements SINUS TACHYCARDIA WITH FREQUENT SUPRAVENTRICULAR PREMATURE COMPLEXES IN A BIGEMINAL PATTERN LAD LEFT ANTERIOR FASCICULAR BLOCK MINIMAL VOLTAGE CRITERIA FOR LVH, CONSIDER NORMAL VARIANT NONSPECIFIC ST & T-WAVE ABNORMALITY vs ischemia cw 04/01/13 - rate increased nonspecific st t wave changes Electronically Signed On 07-30-2016 14:40:09 EST by Shahbaz Mckinney
[2016-07-30] MEDS: TAMSULOSIN 0.4 MG CAP PO SCH (17:21)
[2016-07-30] MEDS: VANCOMYCIN HCL 750 MG, VIAL MATE ADAPTER 1 EACH in D5W 250 ML IV SCH (17:22)
[2016-07-31] MEDS: methylPREDNISolone INJ 40 MG/1 ML VIAL (J2920) IV SCH (00:05)
[2016-07-31] MEDS: PIPERACILLIN/TAZOBACTAM SOD 3.375 GM in D5W MINI-BAG PLUS 50 ML IV SCH ×3 (00:05→17:19)
[2016-07-31 04:00] VITALS: BP 151/73
[2016-07-31] MEDS: IPRATROPIUM 0.5MG/ALBUTEROL 2.5MG INH SOL UD 3ML (DUONEB)(J7620) NEB SCH ×6 (04:07→19:50)
[2016-07-31 05:25] LABS: MEAN CORPUSCULAR HEMOGLOBIN 27.8 pg (27.0-33.0); MEAN CORPUSCULAR HGB CONC 32.5 g/dl (32.0-36.5); MEAN CORPUSCULAR VOLUME 85.4 fl (80.0-96.0); RED CELL DISTRIBUTION WIDTH 13.8 % (11.5-14.5)
[2016-07-31 05:35] LABS: ANION GAP 7 MEQ/L (8-16); BLOOD UREA NITROGEN 26 MG/DL (7-18); CALCIUM LEVEL 7.9 MG/DL (8.8-10.2); CARBON DIOXIDE LEVEL 32 MEQ/L (21-32); CHLORIDE LEVEL 101 MEQ/L (98-107); CREATININE FOR GFR 0.97 MG/DL (0.70-1.30); GLOMERULAR FILTRATION RATE > 60.0 (>35); GLUCOSE, FASTING 155 MG/DL (83-110); SODIUM LEVEL 140 MEQ/L (136-145)
[2016-07-31] MEDS: VANCOMYCIN HCL 750 MG, VIAL MATE ADAPTER 1 EACH in D5W 250 ML IV SCH ×2 (06:10→17:20)
--- NOTE | 2016-07-31 07:10 | ECHO ---
DATE OF STUDY: 07/30/2016 REFERRING PHYSICIAN: Dr. Chris Christian INDICATION: Dyspnea. HEIGHT: 68 inches WEIGHT: 74 kilograms MEASUREMENTS: Aortic root: 3.5 cm Left atrium: 4.8 cm Ventricular septum: 1.10 cm Posterior wall: 1.16 cm Left ventricle diastole: 4.9 cm Left ventricle systole: 3.8 cm LVOT: 2.5 cm Right ventricle: 6.1 cm Inferior vena cava: 2.0 cm DOPPLER MEASUREMENTS: Moderate aortic stenosis. No aortic regurgitation. Aortic valve velocity: 308 cm/s Peak aortic valve gradient: 38 mmHg Mean aortic valve gradient: 22 mmHg Aortic valve VTI: 59.1 cm LVOT: 113 cm/s LVOT VTI: 22.9 cm Mild mitral regurgitation. Mitral E velocity: 72.0 cm/s Mitral A velocity: 137 cm/s Mitral deceleration time 230 milliseconds Severe tricuspid regurgitation. Estimated right ventricle systolic pressure: 90 mmHg assuming a right atrial pressure of 20 mmHg Mild pulmonic regurgitation. MITRAL ANNULAR TISSUE DOPPLER: E prime septal: 6.0 cm/s E prime lateral: 7.4 cm/s DESCRIPTION: Rhythm was sinus. Image quality was fair. No pericardial effusion. This was a 2D, M-mode, color flow Doppler, and pulse wave Doppler examination and included mitral annular tissue Doppler. CONCLUSIONS: 1. Normal left ventricle internal dimensions and normal wall thickness. Normal left ventricle (LV) wall motion and wall thickening. Normal LV systolic functioning. Left ventricular ejection fraction (LVEF) 65-70% by visual estimate. Grade 1 LV diastolic dysfunction (impaired without patient filling pattern). 2. 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 Moderate aortic stenosis. No aortic regurgitation. 3. Mild mitral annular calcification. Mild mitral valve regurgitation. 4. Moderate left atrial dilatation. 5. Severe right ventricle dilatation. Hypertrophy of the right ventricle free wall. Normal right ventricle systolic function. Severe tricuspid regurgitation. Moderate right dilatation. Suggestive of severe elevation of estimated right ventricle systolic pressure (90 mmHg). Inferior vena cava plethora. Elevated central venous pressure of at least 20 mmHg.
[2016-07-31 08:00] VITALS: BP 130/58
[2016-07-31] MEDS: ADVAIR DISKUS 250/50 INH PWD INH SCH ×2 (08:07→19:49)
[2016-07-31] MEDS: DABIGATRAN ETEXILATE 75 MG CAP (PRADAXA) PO SCH ×2 (09:00→21:17)
[2016-07-31] MEDS: DIGOXIN 0.125 MG TAB PO SCH (09:00)
[2016-07-31] MEDS: guaiFENesin ER 600 MG TAB PO SCH ×2 (09:00→21:17)
--- NOTE | 2016-07-31 11:28 | IPN ---
DATE: 07/31/2016 SUBJECTIVE: Today, the patient tells me that he is breathing easier and more comfortably than he has in the previous days. He tells me he is up and moving around better. He denies chest pain, nausea, vomiting, lightheadedness, dizziness. OBJECTIVE: VITAL SIGNS: Temperature 97.8, pulse 70, respiratory rate 18, blood pressure 130/58, oxygen saturation 97% on 4 liters nasal cannula, which is his baseline. GENERAL: He is a frail, elderly, man sitting on the edge of his bed. He does not appear to be in acute distress. HEENT: Cranial nerves II-XII are grossly intact. There is some elevation in his central venous pressure. RESPIRATORY EXAM: Prolonged expiratory phase, poor air movement. He is kyphotic. CARDIOVASCULAR EXAM: S1, S2, regular at this time. ABDOMINAL EXAM: Benign. EXTREMITIES: No clubbing or cyanosis. There is trace edema bilaterally. LABORATORY STUDIES: WBC 13.0, hemoglobin 12.7, platelet count 129. Chemistry panel: Sodium 140, potassium 4.0, chloride 101, bicarbonate 32, BUN 26, creatinine 0.9. He has had three sets of cardiac enzymes that are negative, a BNP within normal limits. Microbiology: Methicillin-resistant Staphylococcus aureus (MRSA) screen is negative. Blood cultures are negative at 24 hours. IMAGING: The patient did have a CT scan of the chest which revealed no acute findings and no acute intrapulmonary disease. ECHOCARDIOGRAM: Reveals normal left ventricular (LV) wall motion and thickening. Ejection fraction (EF) is 65-70%. Grade 1 diastolic dysfunction. Moderate aortic stenosis. Moderate left atrial dilation. Severe right ventricular dilation. Hypertrophy of the right ventricle free wall. Normal right ventricular (RV) systolic function. Severe tricuspid regurgitation. Inferior vena cava plethora. ASSESSMENT AND PLAN: This is an 86-year-old man with dyspnea. Problems: 1. Dyspnea. The patient was reportedly admitted twice at [facility] last week, and he was reportedly diagnosed with influenza and was discharged home. His family then proceeded to return to [place]. Upon his return, he immediately presented to the hospital here as he was having shortness of breath and could not even get out of the car. At the present time, he tells me his symptoms are improved. I am attempting to obtain his discharge summary from [facility] to review their records. The patient does have apparently severe chronic obstructive pulmonary disease (COPD) at his baseline, requiring 4 liters of oxygen. He is on Advair. He has been on intravenous (IV) Solu-Medrol. As his symptoms are improving, I will transition him to oral. He is on DuoNebs. 2. Healthcare-associated pneumonia. There was initial concern for healthcare-associated pneumonia when the patient presented. As such, he has been on vancomycin and Zosyn. His cultures are negative, checking a MRSA screen of his nares. If it remains negative, I will likely narrow antibiotic spectrum to treatment for community-acquired pneumonia as early as tomorrow, although my suspicion for bacterial pneumonia at this time is quite low. 3. Cor pulmonale. The patient does appear to be mildly fluid overloaded. I will restart his home Lasix. I suspect he has cor pulmonale secondary to advanced pulmonary disease. Please note, the patient has diastolic heart failure and follows normally with Dr. Reyes. 4. BPH. The patient is on Flomax. 5. Atrial fibrillation. The patient appears to be in normal sinus rhythm at this time. He is anticoagulated with Pradaxa and rate controlled with digoxin. 6. Bigeminy. The patient has a normal ejection fraction. His electrolytes are optimized. Likely related to his advanced pulmonary disease. 7. Pulmonary hypertension. Will have him followup with his fresh work inspector upon discharge. He is asymptomatic. 8. Obstructive sleep apnea. The patient is to continue using continuous positive airway pressure (CPAP) at night. 9. History of abdominal aortic aneurysm, status post repair. 10. Deep vein thrombosis (DVT) prophylaxis. The patient is on Pradaxa. DISPOSITION: The patient is clinically improving. Will check an O2, start transitioning medications to oral and if continues to improve, narrow antibiotics spectrum as early as tomorrow. Physical therapy evaluation prior to disposition.
[2016-07-31 12:00] VITALS: BP 131/71
[2016-07-31] MEDS ORDERED: CALCIUM CARBONATE 500 MG CHEW U/D PO PRN (12:00)
[2016-07-31] MEDS: FUROSEMIDE 40 MG TAB PO SCH (12:38)
[2016-07-31] MEDS: predniSONE 20 MG TAB PO SCH (12:38)
[2016-07-31 16:00] VITALS: BP 120/56
[2016-07-31] MEDS: TAMSULOSIN 0.4 MG CAP PO SCH (17:19)
--- NOTE | 2016-07-31 18:51 | PHACANCOPD ---
PHARMACY VANCOMYCIN DOSING Pt Demographics Demographics Patient Age:86 , Weight:73.500 , Gender: male Adjusted Body Weight Date: 07/30/16, Adjusted Body Weight: [70.52] Kg Events Past 24 Hours Events Past 24 Hours: YES: Change in CrCl, Elevation in WBC, NO: Dialysis, Diuretic Therapy, Fever, Other, Pending Diagnostics, Pending Procedures Vancomycin Vancomycin indication: PNEUMONIA Vancomycin Target Ranges: 15-20 mcg/ml Vancomycin Load Y/N: No Load Dose Date Time Vancomycin Load Dose: Date: Time: Vancomycin Dose Date: 07/30/16. Current Vancomycin Dose: [750MG q12h] Intermittent Dosing?: No Labs Labs Item Value Date Time Creatinine 1.11 MG/DL 07/30/16 06 Creatinine 0.97 MG/DL 07/31/16446 Item Value Date Time White Blood Count 12.5 K/mm3 H 07/29/16 2212 White Blood Count 10.9 K/mm3 H 07/30/16 0629 White Blood Count 13.0 K/mm3 H 07/31/16446 Vancomycin Level Trough 10.7 UG/ML 07/31/16 1643 Micro Microbiology 07/29/16 Blood Culture - Preliminary, Resulted No growth after 24 hours . All specim... 07/29/16 Blood Culture - Preliminary, Resulted No growth after 24 hours . All specim... 07/31/16 MRSA Screen, Received Pending Creatinine Clearance Date:07/31/16. Creatinine Clearance: [50 ml/min]. Date:07/30/16. Creatinine Clearance: [48]CALCULATED. Pending Labs TROUGH ORDERED FOR 07/31@1700 Assessment and Plan Maintaining Current Dose?: No Reason for dose change: Trough too low Pharmacist Note Pharmacist Note Date: 07/31/16. Pharmacist note: vanco trough drawn ~75 minutes before the 4th dose came back at 10.7. I have ordered another 750mg to be given in addition to his scheduled 750mg IV q12h. We are still awaiting culture results. SCr has slightly improved from yesterday. We will continue to monitor and make adjustments are needed. Date: 07/30/16. Pharmacist note:86 YOM SCR=1.06 Calculated CRCL=48:admitted w/sob /pneumonia: treating w/pip/tazo 3.375 q8h& Vancomycin 1 gmX1in ED, then 750mg IV Q12H,trough scheduled prior to 4h dose (07/31@1700):will continue to monitor SCR and levels Romeo Guevara.D. Jul 31, 2016 18:51
[2016-07-31 19:15] VITALS: BP 126/52
[2016-07-31] MEDS ORDERED: VANCOMYCIN HCL 750 MG, VIAL MATE ADAPTER 1 EACH in D5W 250 ML IV ONE (20:00)
[2016-07-31 23:59] VITALS: BP 141/64
[2016-08-01] MEDS: IPRATROPIUM 0.5MG/ALBUTEROL 2.5MG INH SOL UD 3ML (DUONEB)(J7620) NEB SCH ×7 (00:12→23:51)
[2016-08-01] MEDS: PIPERACILLIN/TAZOBACTAM SOD 3.375 GM in D5W MINI-BAG PLUS 50 ML IV SCH ×2 (01:05→08:26)
[2016-08-01 04:45] VITALS: BP 144/67
[2016-08-01] MEDS: VANCOMYCIN HCL 750 MG, VIAL MATE ADAPTER 1 EACH in D5W 250 ML IV SCH (05:23)
[2016-08-01 05:51] LABS: BLOOD UREA NITROGEN 19 MG/DL (7-18); CALCIUM LEVEL 7.8 MG/DL (8.8-10.2); CARBON DIOXIDE LEVEL 32 MEQ/L (21-32); CREATININE FOR GFR 0.93 MG/DL (0.70-1.30); GLOMERULAR FILTRATION RATE > 60.0 (>35); GLUCOSE, FASTING 131 MG/DL (83-110)
[2016-08-01 06:03] LABS: MEAN CORPUSCULAR HEMOGLOBIN 27.8 pg (27.0-33.0); MEAN CORPUSCULAR HGB CONC 32.4 g/dl (32.0-36.5); MEAN CORPUSCULAR VOLUME 85.9 fl (80.0-96.0); RED CELL DISTRIBUTION WIDTH 13.8 % (11.5-14.5); WHITE BLOOD COUNT 14.6 K/mm3 (4.0-10.0)
[2016-08-01 08:00] VITALS: BP 135/60
[2016-08-01] MEDS: FUROSEMIDE 40 MG TAB PO SCH (08:26)
[2016-08-01] MEDS: DABIGATRAN ETEXILATE 75 MG CAP (PRADAXA) PO SCH ×2 (08:26→20:20)
[2016-08-01] MEDS: guaiFENesin ER 600 MG TAB PO SCH ×2 (08:26→20:20)
[2016-08-01] MEDS: predniSONE 20 MG TAB PO SCH (08:26)
[2016-08-01] MEDS: DIGOXIN 0.125 MG TAB PO SCH (08:27)
[2016-08-01] MEDS: ADVAIR DISKUS 250/50 INH PWD INH SCH ×2 (08:38→21:28)
[2016-08-01 09:06] LABS: ANION GAP 5 MEQ/L (8-16); BLOOD UREA NITROGEN 18 MG/DL (7-18); CARBON DIOXIDE LEVEL 35 MEQ/L (21-32); CHLORIDE LEVEL 97 MEQ/L (98-107); CREATININE FOR GFR 0.85 MG/DL (0.70-1.30); GLOMERULAR FILTRATION RATE > 60.0 (>35); GLUCOSE, FASTING 158 MG/DL (83-110); POTASSIUM SERUM 3.3 MEQ/L (3.5-5.1); SODIUM LEVEL 137 MEQ/L (136-145)
[2016-08-01] MEDS ORDERED: POTASSIUM CHLORIDE 10 MEQ SR TABLET PO ONE (10:45)
[2016-08-01 10:54] LABS: MAGNESIUM LEVEL 2.1 MG/DL (1.8-2.4)
[2016-08-01] MEDS: LevoFLOXacin 500 MG TABLET PO SCH (11:31)
[2016-08-01 11:36] LABS: CHLORIDE LEVEL 97 MEQ/L (98-107); POTASSIUM SERUM 3.6 MEQ/L (3.5-5.1); SODIUM LEVEL 138 MEQ/L (136-145)
[2016-08-01 11:37] LABS: ANION GAP 9 MEQ/L (8-16)
--- NOTE | 2016-08-01 11:39 | IPN ---
DATE: 08/01/2016 SUBJECTIVE: Today, the patient tells me he is feeling better, but he did have difficulty with making urine. He denies any suprapubic tenderness or pain. OBJECTIVE: VITAL SIGNS: Temperature 98, pulse 72, respiratory rate 20, blood pressure 135/60, oxygen saturation 95% on four liters. GENERAL: He is a frail, elderly, man sitting in a recliner, eating breakfast. He appears in no distress. HEENT: Cranial nerves II-XII are grossly intact. No elevation in his central venous pressure (CVP). Moist mucous membranes. CARDIOVASCULAR EXAM: S1, S2, regular. Pansystolic murmur. RESPIRATORY EXAM: Diminished breath sounds. He is kyphotic. End expiratory wheeze. ABDOMINAL EXAM: Benign. EXTREMITIES: No clubbing, cyanosis, or edema. LABORATORY STUDIES: WBC 14.6, hemoglobin 13.4, hematocrit 41.2, platelet count 134. Chemistry panel: Sodium 137, potassium 3.3 repleted, chloride 97, bicarbonate 35, BUN 18, creatinine 0.8. Microbiology: Methicillin-resistant Staphylococcus aureus (MRSA) screen is negative. Blood cultures thus far are negative. No new imaging. ASSESSMENT AND PLAN: This is an 86-year-old man with dyspnea. 1. Dyspnea. The patient was reportedly admitted twice at [facility] in [place] last week. I have attempted to obtain discharge summaries from these stays but I have not been able to receive them as of yet. He was diagnosed with influenza and discharged home. When he arrived he was so short of breath he could not even get out of his car and immediately presented to the hospital. He does, at his baseline, have fairly severe chronic obstructive pulmonary disease (COPD) and requires four liters of oxygen continuously. He is on Advair. We have transitioned him from intravenous (IV) Solu-Medrol to oral prednisone. He is doing well on DuoNebs at this time. His respiratory status has improved back to his baseline and he is able to ambulate 100 feet on four liters of oxygen. 2. Healthcare-associated pneumonia. There was initially concern for this when he presented, however at this time, based on his imaging and his negative cultures, my suspicion for this is less likely. Narrowed spectrum to levofloxacin for an additional 4 days by mouth. 3. Cor pulmonale. The patient does appear to be fluid overloaded. I have restarted his home Lasix. I suspect he has advanced cor pulmonale on echocardiogram done during his stay, secondary to his advanced pulmonary disease, patient does have diastolic heart failure and normally follows with Dr. Reyes. 4. BPH. The patient is on Flomax. The patient did have urinary retention yesterday evening and was straight catheterized for one liter. The patient has struggled with this on numerous hospital stays in the past and has numerous times been sent home with a catheter. At this time, I am having him ambulate and sit in the chair. I am hoping that he is able to void independently, however if he is unable to do this he may require catheter placement and to have it removed in the outpatient setting as he has had done in the past. 5. Atrial fibrillation. The patient appears to be in normal sinus rhythm. He is anticoagulated with Pradaxa. He is rate controlled with digoxin. 6. Pulmonary hypertension. He should followup with his american history professor upon discharge. He is asymptomatic. 7. Obstructive sleep apnea. The patient uses continuous positive airway pressure (CPAP) at night. 8. History of abdominal aortic aneurysm status post repair. 9. Deep venous thrombosis (DVT) prophylaxis. The patient is on Pradaxa. DISPOSITION: The patient has been seen by physical therapy and deemed safe. If he is able to void, he likely can be discharged tomorrow. If he is unable to void, he should have a Vora catheter placed and can likely still be discharged with close followup in the outpatient setting. The patient is a DO NOT RESUSCITATE/DO NOT INTUBATE.
--- NOTE | 2016-08-01 14:52 | EDDOCDS ---
Physician Documentation [facility] Name: Nilson Knight Age: 86 yrs Sex: Male : 1930 Arrival Date: 07/29/2016 Time: 21:55 Bed Admit Hold Private MD: Haja Frazier Disposition: 07/29/16 23:35 Hospitalization ordered by Clemente Christian for Inpatient Admission. Preliminary diagnosis is Chronic obstructive pulmonary disease with (acute) exacerbation. - Bed requested for PCU. - Status is Inpatient Admission. dy - Condition is Stable. - Problem is an acute exacerbation. - Symptoms are unchanged. Historical: - Allergies: no known allergies; - Home Meds: 1. spironolactone Oral once daily 2. tamsulosin 0.4 mg oral cp24 1 cap once daily 3. digoxin 125 mcg Oral tab 1 tab once daily 4. prednisone 10 mg Oral DsPk daily 5. Pradaxa 75 mg oral cap 1 cap 2 times per day 6. Lasix 40 mg Oral tab 1 tab once daily - PSHx: Thyroid Surgery; Appendectomy; - Social history: Smoking status: Patient states former smoker of tobacco. No barriers to communication noted, The patient speaks fluent Danish. - Family history: No immediate family members are acutely ill. - : The pt / caregiver states he / she is on anticoagulants: Pradaxa (Dabigatran). - Exposure Risk Screening:: None identified. Vital Signs: 07/29 22:02 BP 157 / 88; Pulse 93; Resp 28; Pulse Ox 74% ; sew 22:15 Pulse 105 MON; Pulse Ox 87% ; mv5 22:30 Pulse 105 MON; Pulse Ox 88% ; mv5 22:45 Pulse 104 MON; Pulse Ox 87% ; mv5 23:40 BP 131 / 61 (auto/); mv5 23:40 Pulse 113 MON; Pulse Ox 84% ; mv5 23:45 BP 146 / 64 (auto/); mv5 23:46 Pulse 112 MON; Pulse Ox 83% ; mv5 23:51 BP 139 / 63 (auto/); mv5 23:51 Pulse 111 MON; Pulse Ox 84% ; mv5 07/30 00:06 BP 119 / 57 (auto/); mv5 00:06 Pulse 109 MON; mv5 00:21 BP 137 / 63 (auto/); mv5 00:22 Pulse 109 MON; mv5 00:36 BP 130 / 65 (auto/); mv5 00:36 Pulse 131 MON; mv5 00:51 BP 127 / 59 (auto/); mv5 00:51 Pulse 110 MON; Pulse Ox 92% on 4 lpm NC; mv5 01:21 BP 121 / 66 (auto/); mv5 01:21 Pulse 111 MON; Pulse Ox 87% ; mv5 MDM: 07/29 22:04 ECG WITH READING ER PHYS+CARDIAG ordered. EDMS 22:22 -Blood Culture (Adults Only), peripheral from different site, or from device/port/PICC ke etc. if present ordered. 22:22 Call Respiratory ordered. ke 22:22 Property Loss Insurance Claim Adjuster/Pulse Ox/q 15 min VS ordered. ke 22:22 IV Saline Lock ordered. ke 22:22 Oxygen at 4L/Min NC or Home dosage ordered. ke 22:22 Rhythm Strip to chart ordered. ke 22:22 Albuterol 5 mg Nebulizer once ordered. ke 22:22 Albuterol-Ipratropium 3 ml Inhalation once ordered. ke 22:22 Furosemide 40 mg IVP once ordered. ke 22:23 Chest, 1 View Ordered. EDMS 22:23 -Blood Culture Ordered. EDMS 22:23 B-Type Natiuretic Peptide Ordered. EDMS 22:23 Basic Metabolic Profile Ordered. EDMS 22:23 CBC with Diff Ordered. EDMS 22:23 Cardiac Injury Profile Ordered. EDMS 22:23 Troponin Ordered. EDMS 22:23 -Arterial Blood Gas Ordered. EDMS 22:27 -Blood Culture (Adults Only), peripheral from different site, or from device/port/PICC jlm etc. if present complete. 22:27 BLOOD CULTURES Ordered. EDMS 22:29 Call Respiratory complete. jlm 23:02 Financial registration complete. gjb 23:05 [facility] Payment Agreement was scanned into hiogi and attached to record. gjb 23:29 Basic Metabolic Profile Reviewed. ke 23:29 CBC with Diff Reviewed. ke 23:29 Cardiac Injury Profile Reviewed. ke 23:29 -Arterial Blood Gas Reviewed. ke 23:29 B-Type Natiuretic Peptide Reviewed. ke 23:29 Troponin Reviewed. ke 23:34 BED REQUEST+ADM ordered. EDMS 07/30 01:20 TROPONIN Ordered. EDMS 01:20 TROPONIN Ordered. EDMS 01:20 TROPONIN Ordered. EDMS 01:20 LEGIONELLA ANTIGEN URINE Ordered. EDMS 01:20 URINE STREP PNEUMONIAE ANTIGEN Ordered. EDMS 01:20 RESPIRATORY PANEL Ordered. EDMS 01:20 SPUTUM CULTURE AND GRAM STAIN Ordered. EDMS 01:21 PHYSICAL THERAPY EVAL & TREAT ordered. EDMS 01:23 Admission / Observation Status ordered. EDMS 01:23 ECHOCARD,DOPPLER/COLOR FLOW ordered. EDMS 01:23 CT Chest without contrast Ordered. EDMS 01:23 2 GRAM SODIUM DIET ordered. EDMS 02:57 COMPLETE BLOOD COUNT Ordered. EDMS 05:01 BASIC METABOLIC PROFILE Ordered. EDMS 05:01 MAGNESIUM LEVEL Ordered. EDMS 10:23 T-Sheet-- Draft Copy was scanned into hiogi and attached to record. gb 17:40 Radiology Report was scanned into hiogi and attached to record. gb 07/31 18:24 Trend VS was scanned into hiogi and attached to record. 3 18:24 ECG/EKG was scanned into hiogi and attached to record. kf3 Administered Medications: 07/29 22:30 Drug: Furosemide 40 mg [furosemide 10 mg/mL injection solution (4 mL)] Route: IVP; [facility] Site: right antecubital; 22:55 Follow up: Response: No Adverse Reaction [facility] 07/30 00:42 Follow up: Response: No Adverse Reaction [facility] 07/29 22:51 Drug: Albuterol-Ipratropium 3 ml [ipratropium-albuterol 0.5 mg-3 mg(2.5 mg base)/3 mL [facility] nebulization soln (3 mL)] Route: Inhalation; 23:05 Drug: Albuterol 5 mg [albuterol sulfate 2.5 mg/0.5 mL solution for nebulization (1 mL)] [facility] Route: Nebulizer; Signatures: Dispatcher Med[employer] EDMS Nallely Oakes, Manager Gallery Unit deg Linnea Ren RN RN mcp Barnhardt, Gloria, Reg Reg gb Raj Bartholomew RN RN dy Elsner, Karl, ELECTRIC MELT OPERATOR ELECTRIC MELT OPERATOR Aayush Montoya, Reg Reg kf3 Princess Coyle, Manager Gallery Unit jlMariaa Wilks Lisa, RN RN lmg Vannedery, Megan, RN RN [facility] Teddy Welch [facility] Ericka Piper RN [facility] The chart was reviewed and I authenticate all verbal orders and agree with the evaluation and treatment provided.Corrections: (The following items were deleted from the chart) 07/30 01:33 01:20 BLOOD CULTURES ordered. EDMS EDMS 05: 02:57 BASIC METABOLIC PROFILE ordered. EDMS EDMS 05: 02:57 MAGNESIUM LEVEL ordered. EDMS EDMS Attachments: 07/29 23:05 [facility] Payment Agreement gjb 07/30 10:23 T-Sheet-- Draft Copy gb 18:24 ECG/EKG kf3 Chart Complete MTDD
--- NOTE | 2016-08-01 14:52 | EDDOCDS ---
Physician Documentation [facility] Name: Nilson Knight Age: 86 yrs Sex: Male : 1930 Arrival Date: 07/29/2016 Time: 21:55 Bed Admit Hold Private MD: Haja Frazier Disposition: 07/29/16 23:35 Hospitalization ordered by Clemente Christian for Inpatient Admission. Preliminary diagnosis is Chronic obstructive pulmonary disease with (acute) exacerbation. - Bed requested for PCU. - Status is Inpatient Admission. dy - Condition is Stable. - Problem is an acute exacerbation. - Symptoms are unchanged. Historical: - Allergies: no known allergies; - Home Meds: 1. spironolactone Oral once daily 2. tamsulosin 0.4 mg oral cp24 1 cap once daily 3. digoxin 125 mcg Oral tab 1 tab once daily 4. prednisone 10 mg Oral DsPk daily 5. Pradaxa 75 mg oral cap 1 cap 2 times per day 6. Lasix 40 mg Oral tab 1 tab once daily - PSHx: Thyroid Surgery; Appendectomy; - Social history: Smoking status: Patient states former smoker of tobacco. No barriers to communication noted, The patient speaks fluent Uzbek. - Family history: No immediate family members are acutely ill. - : The pt / caregiver states he / she is on anticoagulants: Pradaxa (Dabigatran). - Exposure Risk Screening:: None identified. Vital Signs: 07/29 22:02 BP 157 / 88; Pulse 93; Resp 28; Pulse Ox 74% ; sew 22:15 Pulse 105 MON; Pulse Ox 87% ; mv5 22:30 Pulse 105 MON; Pulse Ox 88% ; mv5 22:45 Pulse 104 MON; Pulse Ox 87% ; mv5 23:40 BP 131 / 61 (auto/); mv5 23:40 Pulse 113 MON; Pulse Ox 84% ; mv5 23:45 BP 146 / 64 (auto/); mv5 23:46 Pulse 112 MON; Pulse Ox 83% ; mv5 23:51 BP 139 / 63 (auto/); mv5 23:51 Pulse 111 MON; Pulse Ox 84% ; mv5 07/30 00:06 BP 119 / 57 (auto/); mv5 00:06 Pulse 109 MON; mv5 00:21 BP 137 / 63 (auto/); mv5 00:22 Pulse 109 MON; mv5 00:36 BP 130 / 65 (auto/); mv5 00:36 Pulse 131 MON; mv5 00:51 BP 127 / 59 (auto/); mv5 00:51 Pulse 110 MON; Pulse Ox 92% on 4 lpm NC; mv5 01:21 BP 121 / 66 (auto/); mv5 01:21 Pulse 111 MON; Pulse Ox 87% ; mv5 MDM: 07/29 22:04 ECG WITH READING ER PHYS+CARDIAG ordered. EDMS 22:22 -Blood Culture (Adults Only), peripheral from different site, or from device/port/PICC ke etc. if present ordered. 22:22 Call Respiratory ordered. ke 22:22 Coconut Candy Maker/Pulse Ox/q 15 min VS ordered. ke 22:22 IV Saline Lock ordered. ke 22:22 Oxygen at 4L/Min NC or Home dosage ordered. ke 22:22 Rhythm Strip to chart ordered. ke 22:22 Albuterol 5 mg Nebulizer once ordered. ke 22:22 Albuterol-Ipratropium 3 ml Inhalation once ordered. ke 22:22 Furosemide 40 mg IVP once ordered. ke 22:23 Chest, 1 View Ordered. EDMS 22:23 -Blood Culture Ordered. EDMS 22:23 B-Type Natiuretic Peptide Ordered. EDMS 22:23 Basic Metabolic Profile Ordered. EDMS 22:23 CBC with Diff Ordered. EDMS 22:23 Cardiac Injury Profile Ordered. EDMS 22:23 Troponin Ordered. EDMS 22:23 -Arterial Blood Gas Ordered. EDMS 22:27 -Blood Culture (Adults Only), peripheral from different site, or from device/port/PICC jlm etc. if present complete. 22:27 BLOOD CULTURES Ordered. EDMS 22:29 Call Respiratory complete. jlm 23:02 Financial registration complete. gjb 23:05 [facility] Payment Agreement was scanned into RadioScape and attached to record. gjb 23:29 Basic Metabolic Profile Reviewed. ke 23:29 CBC with Diff Reviewed. ke 23:29 Cardiac Injury Profile Reviewed. ke 23:29 -Arterial Blood Gas Reviewed. ke 23:29 B-Type Natiuretic Peptide Reviewed. ke 23:29 Troponin Reviewed. ke 23:34 BED REQUEST+ADM ordered. EDMS 07/30 01:20 TROPONIN Ordered. EDMS 01:20 TROPONIN Ordered. EDMS 01:20 TROPONIN Ordered. EDMS 01:20 LEGIONELLA ANTIGEN URINE Ordered. EDMS 01:20 URINE STREP PNEUMONIAE ANTIGEN Ordered. EDMS 01:20 RESPIRATORY PANEL Ordered. EDMS 01:20 SPUTUM CULTURE AND GRAM STAIN Ordered. EDMS 01:21 PHYSICAL THERAPY EVAL & TREAT ordered. EDMS 01:23 Admission / Observation Status ordered. EDMS 01:23 ECHOCARD,DOPPLER/COLOR FLOW ordered. EDMS 01:23 CT Chest without contrast Ordered. EDMS 01:23 2 GRAM SODIUM DIET ordered. EDMS 02:57 COMPLETE BLOOD COUNT Ordered. EDMS 05:01 BASIC METABOLIC PROFILE Ordered. EDMS 05:01 MAGNESIUM LEVEL Ordered. EDMS 10:23 T-Sheet-- Draft Copy was scanned into RadioSc[employer] and attached to record. gb 17:40 Radiology Report was scanned into RadioSc[employer] and attached to record. gb 07/31 18:24 Trend VS was scanned into RadioSc[employer] and attached to record. 3 18:24 ECG/EKG was scanned into RadioSc[employer] and attached to record. kf3 Administered Medications: 07/29 22:30 Drug: Furosemide 40 mg [furosemide 10 mg/mL injection solution (4 mL)] Route: IVP; [facility] Site: right antecubital; 22:55 Follow up: Response: No Adverse Reaction [facility] 07/30 00:42 Follow up: Response: No Adverse Reaction [facility] 07/29 22:51 Drug: Albuterol-Ipratropium 3 ml [ipratropium-albuterol 0.5 mg-3 mg(2.5 mg base)/3 mL [facility] nebulization soln (3 mL)] Route: Inhalation; 23:05 Drug: Albuterol 5 mg [albuterol sulfate 2.5 mg/0.5 mL solution for nebulization (1 mL)] [facility] Route: Nebulizer; Signatures: Dispatcher MedHost EDMS Nallely Oakes, Boat Canvas Maker Installer Unit deg Linnea Ren RN RN mcp Barnhardt, Gloria, Reg Reg gb Raj Bartholomew RN RN dy Elsner, Karl, WASTE DISPOSAL ATTENDANT WASTE DISPOSAL ATTENDANT Aayush Montoya, Reg Reg kf3 Princess Coyle, Boat Canvas Maker Installer Unit jlMariaa Wilks Lisa, RN RN lmg Vannedery, Megan, RN RN [facility] Teddy Welch [facility] Ericka Piper RN [facility] The chart was reviewed and I authenticate all verbal orders and agree with the evaluation and treatment provided.Corrections: (The following items were deleted from the chart) 07/30 01:33 01:20 BLOOD CULTURES ordered. EDMS EDMS 05: 02:57 BASIC METABOLIC PROFILE ordered. EDMS EDMS 05: 02:57 MAGNESIUM LEVEL ordered. EDMS EDMS Attachments: 07/29 23:05 [facility] Payment Agreement gjb 07/30 10:23 T-Sheet-- Draft Copy gb 18:24 ECG/EKG kf3 Chart Complete MTDD
--- NOTE | 2016-08-01 14:52 | EDDOCDS ---
Nurse's Notes [facility] Name: Nilson Knight Age: 86 yrs Sex: Male : 1930 Arrival Date: 07/29/2016 Time: 21:55 Bed Admit Hold Private MD: Haja Frazier Diagnosis: Chronic obstructive pulmonary disease with (acute) exacerbation Presentation: 07/29 22:03 Presenting complaint: Patient states: Has had the flu for about a week now--was [facility] hospitalized in [place]--just arrived from [place]. Adult Sepsis Screening: The patient does not have new or worsening altered mentation. Patient has a respiratory rate of greater than or equal to 22 (1 point). Systolic blood pressure is greater than 100. Patient has a qSOFA score of 0- Negative Sepsis Screen. Suicide/Homicide risk assessment- the patient denies having any suicidal and/or homicidal ideations and does not present with any other emotional, behavioral or mental health complaints. Status: Patient is not a municipal services manager or dependent. Transition of care: patient was not received from another setting of care. 22:03 Acuity: RACIEL Level 2 [facility] 22:03 Method Of Arrival: Walkin/Carried/Asstd [facility] Triage Assessment: 22:05 General: Appears in no apparent distress, Behavior is cooperative. Pain: Denies pain. [facility] Neurological: No deficits noted. Respiratory: Onset: The symptoms/episode began/occurred last monday, Airway is patent Respiratory effort is even, unlabored. Derm: Skin is pink, warm & dry. Historical: - Allergies: no known allergies; - Home Meds: 1. spironolactone Oral once daily 2. tamsulosin 0.4 mg oral cp24 1 cap once daily 3. digoxin 125 mcg Oral tab 1 tab once daily 4. prednisone 10 mg Oral DsPk daily 5. Pradaxa 75 mg oral cap 1 cap 2 times per day 6. Lasix 40 mg Oral tab 1 tab once daily - PSHx: Thyroid Surgery; Appendectomy; - Social history: Smoking status: Patient states former smoker of tobacco. No barriers to communication noted, The patient speaks fluent Malagasy. - Family history: No immediate family members are acutely ill. - : The pt / caregiver states he / she is on anticoagulants: Pradaxa (Dabigatran). - Exposure Risk Screening:: None identified. Screenin:16 Screening information is obtained from the patient. Fall risk: No risks identified. mv5 Assistance ADL's: requires no assistance with activities of daily living. Abuse/DV Screen: The patient / caregiver reports he/she is: not in a situation that causes fear, pain or injury. Nutritional screening: No deficits noted. home support is adequate. 07/30 01:21 Advance Directives: There is no active DNR order. mv5 Assessment: 07/29 22:16 General: Appears in no apparent distress, comfortable, well nourished, well groomed, mv5 Family at bedside.. Pain: Denies pain. Neurological: Level of Consciousness is awake, alert, Oriented to person, place, time. Cardiovascular: Capillary refill < 3 seconds Heart tones S1 S2 present Pulses are all present. Rhythm is atrial fibrillation. Cardiovascular: Chest pain is denied. Respiratory: Airway is patent Respiratory effort is even, unlabored, Respiratory pattern is regular, symmetrical, on 5LNC per home O2 routine. Breath sounds are diminished bilaterally. Derm: Skin is pink, warm & dry. 23:35 General: Appears in no apparent distress, Family at bedside.. Neurological: Level of mv5 Consciousness is awake, alert, Oriented to person, place, time. Cardiovascular: Capillary refill < 3 seconds Rhythm is sinus arrythmia. Respiratory: Airway is patent Respiratory effort is even, unlabored, Respiratory pattern is regular, symmetrical, Respiratory: Reports shortness of breath on exertion Pt had increased work of breathing after standing at bedside to use urinal. Derm: Skin is pink, warm & dry. 07/30 00:40 General: Appears in no apparent distress, comfortable. Neurological: Level of mv5 Consciousness is awake, alert, Oriented to person, place, time. Cardiovascular: Rhythm is sinus arrythmia Chest pain is denied. Respiratory: Airway is patent Respiratory effort is even, unlabored, Respiratory pattern is regular, symmetrical. Derm: Skin is pink, warm & dry. 01:31 General: Appears in no apparent distress. Neurological: Level of Consciousness is mv5 awake, alert, Oriented to person, place, time. Respiratory: Airway is patent Respiratory effort is even, unlabored, Respiratory pattern is regular, symmetrical. Derm: Skin is pink, warm & dry. Vital Signs: 07/29 22:02 BP 157 / 88; Pulse 93; Resp 28; Pulse Ox 74% ; sew 22:15 Pulse 105 MON; Pulse Ox 87% ; mv5 22:30 Pulse 105 MON; Pulse Ox 88% ; mv5 22:45 Pulse 104 MON; Pulse Ox 87% ; mv5 23:40 BP 131 / 61 (auto/); mv5 23:40 Pulse 113 MON; Pulse Ox 84% ; mv5 23:45 BP 146 / 64 (auto/); mv5 23:46 Pulse 112 MON; Pulse Ox 83% ; mv5 23:51 BP 139 / 63 (auto/); mv5 23:51 Pulse 111 MON; Pulse Ox 84% ; mv5 0211 00:06 BP 119 / 57 (auto/); mv5 00:06 Pulse 109 MON; mv5 00:21 BP 137 / 63 (auto/); mv5 00:22 Pulse 109 MON; mv5 00:36 BP 130 / 65 (auto/); mv5 00:36 Pulse 131 MON; mv5 00:51 BP 127 / 59 (auto/); mv5 00:51 Pulse 110 MON; Pulse Ox 92% on 4 lpm NC; mv5 01:21 BP 121 / 66 (auto/); mv5 01:21 Pulse 111 MON; Pulse Ox 87% ; mv5 Vitals: 07/29 22:02 Log In Time: July 29, 2016 at 22:02. RN notified that patient meets Red Flag sew criteria. ED Course: 22:02 Lisa Dee,RN is Primary Nurse. sew 22:02 Patient visited by Meera Leblanc. sew 22:02 Haja Frazier is Private Physician. sew 22:02 Patient visited by Meera Leblanc. sew 22:02 Patient moved to 1 [facility] 22:04 Triage Initiated mcp 22:07 Patient visited by Linnea Ren, TYLER. [facility] 22:09 Pt greeted and oriented to ED. Patient advised of names of staff involved in care, rs6 location of call post, wait times and NPO status. Accompanied by Family Member, Significant Other, Patient has correct armband on for positive identification. Placed in gown. Bed in low position. Call light in reach. Side rails up X 1. clinical research monitor on. Pulse ox on. NIBP on. 22:09 EKG done. (by ED staff). Reviewed by Rosas Mcconnell DO. rs6 22:10 Patient visited by Ludmila Lopez PCA. rs6 22:14 [facility]d Su[facility] F[facility] ke 22:14 Patient visited by Sd Suarez FNP. ke 22:14 Patient visited by Sd Suarez FNP. ke 22:16 The patient / caregiver is instructed regarding the plan of care and ED course. mv5 22:16 Inserted saline lock: 20 gauge in right antecubital area and blood collected. The mv5 patient tolerated the procedure well. 22:28 Troponin Sent. mv5 22:28 Cardiac Injury Profile Sent. mv5 22:28 CBC with Diff Sent. mv5 22:28 B-Type Natiuretic Peptide Sent. mv5 22:28 Basic Metabolic Profile Sent. mv5 22:47 Patient visited by Sd Suarez FNP. ke 22:51 -Arterial Blood Gas Sent. jh6 22:55 BLOOD CULTURES Sent. mv5 23:05 [facility] Payment Agreement was scanned into [employer] and attached to record. gjb 23:28 Patient visited by Sd Suarez FNP. ke 23:34 Clemente Christian is Hospitalizing Provider. ke 02 01:21 Report given to Report to Gladis Salguero RN. mv5 01:21 No procedures done that require assistance. mv5 01:34 Patient moved to 21 kmg1 02:32 CT Chest without contrast Returned. EDMS 06:32 Patient moved to Admit Hold kmg1 07:28 Primary Nurse role handed off by Lisa Dee RN mlb1 09:21 Chest, 1 View Returned. EDMS 10:23 T-Sheet-- Draft Copy was scanned into [employer] and attached to record. gb 12:03 Bobby Hairston MD is Attending Physician. pc 17:40 Radiology Report was scanned into [employer] and attached to record. gb 07/31 18:24 Trend VS was scanned into [employer] and attached to record. kf3 18:24 ECG/EKG was scanned into [employer] and attached to record. kf3 Administered Medications: 07/29 22:30 Drug: Furosemide 40 mg [furosemide 10 mg/mL injection solution (4 mL)] Route: IVP; [facility] Site: right antecubital; 22:55 Follow up: Response: No Adverse Reaction 5 07/30 00:42 Follow up: Response: No Adverse Reaction 5 07/29 22:51 Drug: Albuterol-Ipratropium 3 ml [ipratropium-albuterol 0.5 mg-3 mg(2.5 mg base)/3 mL 6 nebulization soln (3 mL)] Route: Inhalation; 23:05 Drug: Albuterol 5 mg [albuterol sulfate 2.5 mg/0.5 mL solution for nebulization (1 mL)] 6 Route: Nebulizer; Attachments: 07/31 18:24 Trend VS kf3 RT: 07/29 22:45 ABG's drawn from left radial artery pressure held for 5 minutes no bleeding noted jh6 pressure bandage applied specimen sent pt. tolerated well. 22:50 Initial Med Neb Given as ordered Patient was instructed and evaluated on procedure jh6 Patient tolerated procedure well without adverse effect. Respiratory: Airway is patent Respiratory effort is even, unlabored, Respiratory pattern is regular symmetrical, Breath sounds are coarse in right upper lobe, left upper lobe, right middle lobe, left lower lobe and right lower lobe. 23:06 Respiratory: Airway is patent Respiratory effort is even, unlabored, Respiratory jh6 pattern is regular symmetrical, Breath sounds with crackles in left posterior upper lobe, right posterior upper lobe, left posterior lower lobe, right posterior middle lobe and right posterior lower lobe Breath sounds are diminished in left posterior upper lobe, right posterior upper lobe, left posterior lower lobe, right posterior middle lobe and right posterior lower lobe. 23:16 Respiratory: Airway is patent Respiratory effort is even, labored, Respiratory pattern jh6 is regular symmetrical, Breath sounds with crackles in right upper lobe, left upper lobe, right middle lobe, left lower lobe and right lower lobe Breath sounds are diminished in right upper lobe, left upper lobe, right middle lobe, left lower lobe and right lower lobe. Order Results: Lab Order: B-Type Natiuretic Peptide; SPEC'M 07/29/16 22:12 Test: BRAIN NATRIURETIC PEPTIDE; Value: 87.6; Range: <100; Units: PG/ML; Status: F Lab Order: Basic Metabolic Profile; SPEC'M 07/29/16 22:12 Test: GLUCOSE, FASTING; Value: 155; Range: 83-110; Abnormal: Above high normal; Units: MG/DL; Status: F Test: BLOOD UREA NITROGEN; Value: 29; Range: 7-18; Abnormal: Above high normal; Units: MG/DL; Status: F Test: CREATININE FOR GFR; Value: 1.06; Range: 0.70-1.30; Units: MG/DL; Status: F Test: GLOMERULAR FILTRATION RATE; Value: > 60.0; Range: >35; Status: F Test: SODIUM LEVEL; Value: 142; Range: 136-145; Units: MEQ/L; Status: F Test: POTASSIUM SERUM; Value: 3.5; Range: 3.5-5.1; Units: MEQ/L; Status: F Test: CHLORIDE LEVEL; Value: 100; Range: 98-107; Units: MEQ/L; Status: F Test: CARBON DIOXIDE LEVEL; Value: 35; Range: 21-32; Abnormal: Above high normal; Units: MEQ/L; Status: F Test: ANION GAP; Value: 7; Range: 8-16; Abnormal: Below low normal; Units: MEQ/L; Status: F Test: CALCIUM LEVEL; Value: 8.4; Range: 8.8-10.2; Abnormal: Below low normal; Units: MG/DL; Status: F Test Note: ; Units are mL/min/1.73 m2 Chronic Kidney Disease Staging per NKF: Stage I & II GFR >=60 Normal to Mildly Decreased Stage III GFR 30-59 Moderately Decreased Stage IV GFR 15-29 Severely Decreased Stage V GFR <15 Very Little GFR Left ESRD GFR <15 on BIG MACHINE CONSULTANT Lab Order: CBC with Diff; SPEC'M 07/29/16 22:12 Test: WHITE BLOOD COUNT; Value: 12.5; Range: 4.0-10.0; Abnormal: Above high normal; Units: K/mm3; Status: F Test: RED BLOOD COUNT; Value: 5.26; Range: 4.30-6.10; Units: M/mm3; Status: F Test: HEMOGLOBIN; Value: 14.5; Range: 14.0-18.0; Units: g/dl; Status: F Test: HEMATOCRIT; Value: 44.8; Range: 42.0-52.0; Units: %; Status: F Test: MEAN CORPUSCULAR VOLUME; Value: 85.1; Range: 80.0-96.0; Units: fl; Status: F Test: MEAN CORPUSCULAR HEMOGLOBIN; Value: 27.6; Range: 27.0-33.0; Units: pg; Status: F Test: MEAN CORPUSCULAR HGB CONC; Value: 32.4; Range: 32.0-36.5; Units: g/dl; Status: F Test: RED CELL DISTRIBUTION WIDTH; Value: 14.1; Range: 11.5-14.5; Units: %; Status: F Test: PLATELET COUNT, AUTOMATED; Value: 184; Range: 150-450; Units: k/mm3; Status: F Test: NEUTROPHILS %; Value: 83.2; Range: 36.0-66.0; Abnormal: Above high normal; Units: %; Status: F Test: LYMPH %; Value: 6.6; Range: 24.0-44.0; Abnormal: Below low normal; Units: %; Status: F Test: MONO %; Value: 8.3; Range: 0.0-5.0; Abnormal: Above high normal; Units: %; Status: F Test: EOS %; Value: 0.2; Range: 0.0-3.0; Units: %; Status: F Test: BASO %; Value: 0.3; Range: 0.0-1.0; Units: %; Status: F Test: LARGE UNSTAINED CELL %; Value: 1.5; Range: 0.0-4.0; Units: %; Status: F Test: NEUTROPHILS #; Value: 10.4; Range: 1.8-7.7; Abnormal: Above high normal; Units: K/mm3; Status: F Test: LYMPH #; Value: 1.0; Range: 1.5-4.5; Abnormal: Below low normal; Units: K/mm3; Status: F Test: MONO #; Value: 1.0; Range: 0.0-0.8; Abnormal: Above high normal; Units: K/mm3; Status: F Test: EOS #; Value: 0.0; Range: 0.0-0.50; Units: K/mm3; Status: F Test: BASO #; Value: 0.0; Range: 0.0-0.2; Units: K/mm3; Status: F Test: LARGE UNSTAINED CELL #; Value: 0.2; Range: 0.0-0.4; Units: K/mm3; Status: F Lab Order: Cardiac Injury Profile; SPEC'M 07/29/16 22:12 Test: CPK CREATINE PHOSPHOKINASE; Value: 61; Range: 39-308; Units: U/L; Status: F Test: CK-MB VALUE MASS; Value: 3.0; Range: 0.0-3.6; Units: NG/ML; Status: F Test: MB/CK RELATIVE INDEX; Value: 4.91; Range: < OR =4; Abnormal: Above high normal; Status: F Test Note: ; DIAGNOSIS CRITERIA MMB ng/ml Relative Index (RI) NON-AMI < or = 5 N/A [place] > 5 < or = 4 AMI > 5 > 4 Lab Order: Troponin; [facility] 07/29/16 22:12 Test: TROPONIN I; Value: 0.04; Range: < 0.10; Units: NG/ML; Status: F Test Note: ; Troponin I Reference Interval for gdgt LOCI: 99th Percentile= 0.00-0.045 ng/ml Risk Stratification: <= 0.10 ng/ml Decreased Risk for Adverse Clinical Events. 0.10-1.50 ng/ml Increased Risk for Adverse Clinical Events. Evaluation of additional criterion and/or repeat testing in 2-6 hours is suggested to rule out myocardial damage. >= 1.50 ng/ml Indicative of Myocardial Injury. Lab Order: -Arterial Blood Gas; [facility] 07/29/16 22:33 Test: ABG pH (ARTERIAL); Value: 7.491; Range: 7.350-7.450; Abnormal: Above high normal; Units: UNITS; Status: F Test: ABG PARTIAL PRESSURE CO2; Value: 40.9; Range: 35.0-45.0; Units: mmHg; Status: F Test: ABG PARTIAL PRESSURE O2; Value: 54.3; Range: 75.0-100.0; Abnormal: Below low normal; Units: mmHg; Status: F Test: ABG TOTAL CO2; Value: 31.8; Range: 23.0-31.0; Abnormal: Above high normal; Units: MEQ/L; Status: F Test: ABG HCO3; Value: 30.5; Range: 22.0-26.0; Abnormal: Above high normal; Units: MEQ/L; Status: F Test: ABG BASE EXCESS; Value: 6.6; Range: -2.0-2.0; Abnormal: Above high normal; Status: F Test: ABG STANDARD HCO3; Value: 30.3; Range: 22.0-26.0; Abnormal: Above high normal; Units: MEQ/L; Status: F Test: ABG O2 SATURATION; Value: 89.0; Range: 95.0-99.0; Abnormal: Below low normal; Units: %; Status: F Test: ABG DEVICE; Value: NASAL ELO; Status: F Lab Order: TROPONIN; SPEC'M 07/30/16 06:29 Test: TROPONIN I; Value: 0.04; Range: < 0.10; Units: NG/ML; Status: F Test Note: ; Troponin I Reference Interval for [employer]ens Rapid Vocabulary LOCI: 99th Percentile= 0.00-0.045 ng/ml Risk Stratification: <= 0.10 ng/ml Decreased Risk for Adverse Clinical Events. 0.10-1.50 ng/ml Increased Risk for Adverse Clinical Events. Evaluation of additional criterion and/or repeat testing in 2-6 hours is suggested to rule out myocardial damage. >= 1.50 ng/ml Indicative of Myocardial Injury. Lab Order: COMPLETE BLOOD COUNT; SPEC'M 07/30/16 06:29 Test: WHITE BLOOD COUNT; Value: 10.9; Range: 4.0-10.0; Abnormal: Above high normal; Units: K/mm3; Status: F Test: RED BLOOD COUNT; Value: 5.06; Range: 4.30-6.10; Units: M/mm3; Status: F Test: HEMOGLOBIN; Value: 13.8; Range: 14.0-18.0; Abnormal: Below low normal; Units: g/dl; Status: F Test: HEMATOCRIT; Value: 43.2; Range: 42.0-52.0; Units: %; Status: F Test: MEAN CORPUSCULAR VOLUME; Value: 85.4; Range: 80.0-96.0; Units: fl; Status: F Test: MEAN CORPUSCULAR HEMOGLOBIN; Value: 27.3; Range: 27.0-33.0; Units: pg; Status: F Test: MEAN CORPUSCULAR HGB CONC; Value: 32.0; Range: 32.0-36.5; Units: g/dl; Status: F Test: RED CELL DISTRIBUTION WIDTH; Value: 13.8; Range: 11.5-14.5; Units: %; Status: F Test: PLATELET COUNT, AUTOMATED; Value: 135; Range: 150-450; Abnormal: Below low normal; Units: k/mm3; Status: F Lab Order: BASIC METABOLIC PROFILE; SPEC'07/30/16 06:29 Test: GLUCOSE, FASTING; Value: 163; Range: 83-110; Abnormal: Above high normal; Units: MG/DL; Status: F Test: BLOOD UREA NITROGEN; Value: 31; Range: 7-18; Abnormal: Above high normal; Units: MG/DL; Status: F Test: CREATININE FOR GFR; Value: 1.11; Range: 0.70-1.30; Units: MG/DL; Status: F Test: GLOMERULAR FILTRATION RATE; Value: > 60.0; Range: >35; Status: F Test: SODIUM LEVEL; Value: 139; Range: 136-145; Units: MEQ/L; Status: F Test: POTASSIUM SERUM; Value: 3.4; Range: 3.5-5.1; Abnormal: Below low normal; Units: MEQ/L; Status: F Test: CHLORIDE LEVEL; Value: 98; Range: 98-107; Units: MEQ/L; Status: F Test: CARBON DIOXIDE LEVEL; Value: 34; Range: 21-32; Abnormal: Above high normal; Units: MEQ/L; Status: F Test: ANION GAP; Value: 7; Range: 8-16; Abnormal: Below low normal; Units: MEQ/L; Status: F Test: CALCIUM LEVEL; Value: 8.2; Range: 8.8-10.2; Abnormal: Below low normal; Units: MG/DL; Status: F Test Note: ; Units are mL/min/1.73 m2 Chronic Kidney Disease Staging per NKF: Stage I & II GFR >=60 Normal to Mildly Decreased Stage III GFR 30-59 Moderately Decreased Stage IV GFR 15-29 Severely Decreased Stage V GFR <15 Very Little GFR Left ESRD GFR <15 on BIG MACHINE CONSULTANT Lab Order: MAGNESIUM LEVEL; SPEC'07/30/16 06:29 Test: MAGNESIUM LEVEL; Value: 2.4; Range: 1.8-2.4; Units: MG/DL; Status: F Radiology Order: Chest, 1 View Test: Chest, 1 View REASON FOR EXAMINATION: Shortness of Breath; AP portable chest: 07/29/2016 at 10:41 p.m.; ; Clinical history: Dyspnea.; ; Comparison chest x-rays 04/01/2013, 10/05/2011, CT angiogram 10/01/2011.; ; Findings: Lungs are hyperinflated with changes of COPD. Blunting of the right; CP angle which could be scar or effusion. Epicardial fat pad along the left; heart border to the chest wall as on previous CT and chest x-ray. Hyperinflation; with COPD and fibrosis seen. There is venous hypertension but no charlette edema.; Pulmonary artery hypertension is noted and prominent. There is no gross; cardiomegaly. The aorta is tortuous and ectatic but without interval change.; Airway intact. Degenerative changes in the shoulders and spine.; ; Impression:; 1. Hyperinflation with COPD and some minor fibrotic change. There is blunting; of the right CP angle which may be a small effusion or scar.; 2. Pulmonary hypertension, tortuous calcified aorta, but no charlette edema, dense; consolidation or other acute finding.; ; Unreviewed; Radiology Order: CT Chest without contrast Test: CT Chest without contrast REASON FOR EXAMINATION: SOB; ; CT of the chest without contrast; Clinical statement: Shortness of breath.; Technique: Multiple axial CT images were obtained with 5 mm cuts through the chest without administra; tion of contrast.; Comparison: 10/01/2011.; Findings: There is no thoracic lymphadenopathy. The visualized portions of the thyroid gland is unrem; arkable. There are no pericardial or pleural effusions. The lungs are clear. Limited imaging of the u; pper abdomen does not demonstrate any acute abnormalities. There are no suspicious osseous lesions.; Impression: No acute findings. No acute intrapulmonary disease.; ; Outcome: 23:35 Decision to Hospitalize by Provider. ke 07/30 13:51 Patient left the ED. dy Signatures: Dispatcher [employer] EDMS Bobby Hairston MD MD pc Garrison, Kelly RN RN km Linnea Ren RN RN Milly Gonsales, Raj Coto RN RN dy Elsner, Karl, TRAIN DISPATCHER TRAIN DISPATCHER Rudy Gupta, RN RN mlb1 Aayush Velez, Reg Reg kf3 Teddy Welch jh6 Ericka Piper,RN RN cj Benji, Ludmila Jimenez, PROFESSIONAL APPLICATION DESIGNER PROFESSIONAL APPLICATION DESIGNER rs6 Mariaa Samuel Megan,RN RN mv5 Corrections: (The following items were deleted from the chart) 07/29 23:37 22:35 Cardiovascular: mv5 mv5 Chart Complete MTDD
[2016-08-01 16:00] VITALS: BP 136/54
[2016-08-01] MEDS: TAMSULOSIN 0.4 MG CAP PO SCH (18:37)
[2016-08-01 19:27] VITALS: BP 134/70
[2016-08-01 21:55] VITALS: BP 148/92
[2016-08-02 02:00] VITALS: BP 143/86
[2016-08-02] MEDS: IPRATROPIUM 0.5MG/ALBUTEROL 2.5MG INH SOL UD 3ML (DUONEB)(J7620) NEB SCH ×3 (03:18→11:25)
[2016-08-02] MEDS: LevoFLOXacin 500 MG TABLET PO SCH (05:37)
[2016-08-02 06:00] VITALS: BP 154/69
[2016-08-02 06:58] LABS: MEAN CORPUSCULAR HEMOGLOBIN 27.9 pg (27.0-33.0); MEAN CORPUSCULAR HGB CONC 32.6 g/dl (32.0-36.5); MEAN CORPUSCULAR VOLUME 85.5 fl (80.0-96.0); WHITE BLOOD COUNT 10.7 K/mm3 (4.0-10.0)
[2016-08-02 07:06] LABS: ANION GAP 8 MEQ/L (8-16); BLOOD UREA NITROGEN 18 MG/DL (7-18); CALCIUM LEVEL 7.8 MG/DL (8.8-10.2); CARBON DIOXIDE LEVEL 34 MEQ/L (21-32); CHLORIDE LEVEL 98 MEQ/L (98-107); CREATININE FOR GFR 0.77 MG/DL (0.70-1.30); GLOMERULAR FILTRATION RATE > 60.0 (>35); GLUCOSE, FASTING 104 MG/DL (83-110); POTASSIUM SERUM 3.9 MEQ/L (3.5-5.1); SODIUM LEVEL 140 MEQ/L (136-145)
[2016-08-02] MEDS: DABIGATRAN ETEXILATE 75 MG CAP (PRADAXA) PO SCH (07:54)
[2016-08-02] MEDS: FUROSEMIDE 40 MG TAB PO SCH (07:54)
[2016-08-02] MEDS: guaiFENesin ER 600 MG TAB PO SCH (07:54)
[2016-08-02] MEDS: predniSONE 20 MG TAB PO SCH (07:54)
[2016-08-02] MEDS: DIGOXIN 0.125 MG TAB PO SCH (07:55)
[2016-08-02] MEDS: ADVAIR DISKUS 250/50 INH PWD INH SCH (08:49)
[2016-08-02 10:00] VITALS: BP 162/76
[2016-08-02] MEDS ORDERED: PRED10TA PO (12:48)
[2016-08-02] MEDS ORDERED: LEVA500T PO (12:48)
--- NOTE | 2016-08-02 15:54 | DSES ---
DATE OF ADMISSION: 07/30/2016 DATE OF DISCHARGE: 08/02/2016 PRIMARY CARE PROVIDER: Patient sees Dr. Frazier, who has retired. Arrangements are made for patient to get a primary care provider on the outside. FINAL DIAGNOSES: 1. Acute on chronic hypoxic respiratory failure secondary to acute chronic obstructive pulmonary disease exacerbation. 2. Healthcare-associated bacterial pneumonia. 3. Cor pulmonale. 4. Benign prostatic hypertrophy. 5. Atrial fibrillation. 6. Pulmonary hypertension. 7. Obstructive sleep apnea. 8. History of abdominal aortic aneurysm. HISTORY OF PRESENT ILLNESS: This is an 86-year-old male patient with underlying medical history of diastolic congestive heart failure, chronic obstructive pulmonary disease (COPD), on 5 liters oxygen at home. Follows with Dr. Reyes for cardiology as outpatient. Hypertension. Follows with Dr. Deal for pulmonary. Obstructive sleep apnea, atrial fibrillation, on Pradaxa, benign prostatic hypertrophy (BPH), history of abdominal aortic aneurysm, presented with complaint of shortness of breath and was found to have hypoxic. Patient has just returned from [place], [place], after visiting his son for the past one month. Reported starting to have progressive worsening shortness of breath approximately 7 days ago, accompanied by nonproductive cough. Denies any fevers, chest pain, palpitations, or diaphoresis. Patient has been hospitalized in [place], [place], area for a total of 4 days. Was found to have influenza. Received supportive treatment and steroid, but stated that he feels the same as before. At baseline, patient ambulates around at home without an assistive device on 5 liters oxygen. On admission patient was having significant dyspnea on exertion. Denies any lightheadedness, dizziness, abdominal pain, nausea, vomiting, diarrhea. Patient was noted to be acutely hypoxic in the emergency department (ED) with oxygen saturations in the 70s when standing up. Subsequently, patient admitted for acute COPD exacerbation. Started on intravenous (IV) steroids and also antibiotics, broad-spectrum coverage .Cultures were sent. Physical therapy was consulted. Nebulizer treatment was provided. Oxygen supplementation was given. Patient also appeared to be fluid overloaded. Subsequently also given Lasix. Echo was appreciated with suspicion of cor pulmonale. Patient's home medication was continued. Patient was on Pradaxa for atrial fibrillation, which also provided DVT prophylaxis. CPAP at night was continued. Oxygen supplementation provided. Patient's condition progressively improved. Steroids were tapered. Antibiotics switched to oral. Physical therapy evaluation was appreciated. Patient has history of urinary retention. At this time had a Vora for urinary retention. Voiding trial failed. Subsequently, Vora was reinserted. Patient currently is tolerating oral. Able to ambulate. Ready for discharge for further care of outpatient and outpatient voiding trial. VITAL SIGNS: Temperature 96.8, pulse 77, respirations 16, blood pressure 162/76, pulse oximetry 95% on 3 liters nasal cannula. LABORATORY DATA: WBC 10.7, hemoglobin and hematocrit 12/36.8, platelets 130. Chemistry: Sodium 140, potassium 3.9, chloride 98, bicarbonate 34, BUN 18, creatinine 1.77. DISCHARGE MEDICATIONS: - Levaquin 500 mg by mouth daily for 5 more days - prednisone taper, 10 mg tablets, four tablets daily for 3 days, three tablets daily for 3 days, two tablets daily for 3 days, and one tablet daily for 3 days, then stop - DuoNeb inhalation every 4 hours as needed - Pradaxa 75 mg by mouth twice a day - digoxin 0.125 mg by mouth daily - Lasix 40 mg by mouth daily - spironolactone 25 mg by mouth daily - Flomax one capsule by mouth daily DISCHARGE INSTRUCTIONS: Patient is instructed to followup with primary care provider in 7 days for voiding trial. Consider following up with pulmonology in the next 2 weeks. Return to the hospital if symptoms worsen. Home care referral made.
== END 2016-08-02 13:59 | disposition home or self-care (01) | DRG 190 ==
LOC: M ED 21:55 → M ED INP 07-30 01:08 → M PCU 07-30 11:47 → M MSPAV 08-01 21:50
PROVIDERS: ADMIT Internal Medicine; ATTEND Hospitalist
DX: J44.1 Chronic obstructive pulmonary disease with (acute) exacerbation (principal); J96.21 Acute and chronic respiratory failure with hypoxia; I50.32 Chronic diastolic (congestive) heart failure; I11.0 Hypertensive heart disease with heart failure; G47.33 Obstructive sleep apnea (adult) (pediatric); I48.91 Unspecified atrial fibrillation; R00.8 Other abnormalities of heart beat; I27.2 Other secondary pulmonary hypertension; R33.9 Retention of urine, unspecified; I27.81 Cor pulmonale (chronic); N40.1 Benign prostatic hyperplasia with lower urinary tract symptoms; Z66 Do not resuscitate; Z79.899 Other long term (current) drug therapy; Z99.81 Dependence on supplemental oxygen; Z79.01 Long term (current) use of anticoagulants

== ENCOUNTER → 2016-08-23 | Outpatient (REF) | payer MEDICARE ==
[~2016-08-23] MED LIST changes: +DIGO0.12 PO; +FLOM5CAP PO; +IPRASOL4 INH; +LEVA500T PO; +PRAD75CA3 PO; +PRED10TA PO; +SPIR25TA2 PO
== END ==
LOC: M SMT 17:21
PROVIDERS: ATTEND Nurse Practitioner Family
DX: R33.9 Retention of urine, unspecified (principal)

== ENCOUNTER → 2017-01-13 | Outpatient (REF) | payer MEDICARE ==
[~2017-01-13] MED LIST changes: +LEVA1TAB2 PO; -LEVA500T PO; -PRED10TA PO; +PRED10TA2 PO
[2017-01-13 12:35] LABS: BASO % 0.6 % (0.0-1.0); EOS # 0.2 K/mm3 (0.0-0.50); EOS % 2.8 % (0.0-3.0); LYMPH # 0.8 K/mm3 (1.5-4.5); LYMPH % 15.4 % (24.0-44.0); MEAN CORPUSCULAR HEMOGLOBIN 27.6 pg (27.0-33.0); MEAN CORPUSCULAR HGB CONC 32.1 g/dl (32.0-36.5); MONO # 0.4 K/mm3 (0.0-0.8); MONO % 8.1 % (0.0-5.0); NEUTROPHILS # 3.8 K/mm3 (1.8-7.7); RED CELL DISTRIBUTION WIDTH 13.9 % (11.5-14.5); WHITE BLOOD COUNT 5.4 K/mm3 (4.0-10.0)
== END ==
LOC: M LABDRAW1 11:30
PROVIDERS: ATTEND Physician Assistant
DX: Z79.01 Long term (current) use of anticoagulants (principal)

== ENCOUNTER → 2017-09-06 | Outpatient (CLI) | payer MEDICARE ==
[2017-09-06 13:34] LABS: HEMATOCRIT 40.4 % (42.0-52.0); HEMOGLOBIN 12.6 g/dl (14.0-18.0); MEAN CORPUSCULAR HGB CONC 31.2 g/dl (32.0-36.5); MEAN CORPUSCULAR VOLUME 89.8 fl (80.0-96.0); PLATELET COUNT, AUTOMATED 173 10^3/uL (150-450); RED CELL DISTRIBUTION WIDTH 14.1 % (11.5-14.5); WHITE BLOOD COUNT 5.3 10^3/uL (4.0-10.0)
[2017-09-06 13:55] LABS: ALBUMIN 3.7 GM/DL (3.2-5.2); ANION GAP 3 MEQ/L (8-16); BLOOD UREA NITROGEN 18 MG/DL (7-18); CALCIUM LEVEL 8.8 MG/DL (8.8-10.2); CARBON DIOXIDE LEVEL 39 MEQ/L (21-32); CHLORIDE LEVEL 98 MEQ/L (98-107); CREATININE FOR GFR 0.79 MG/DL (0.70-1.30); GLOMERULAR FILTRATION RATE > 60.0 (>35); GLUCOSE, FASTING 116 MG/DL (70-100); POTASSIUM SERUM 4.3 MEQ/L (3.5-5.1); SODIUM LEVEL 140 MEQ/L (136-145)
== END ==
LOC: M SMT 09:08
DX: I48.0 Paroxysmal atrial fibrillation (principal); I50.32 Chronic diastolic (congestive) heart failure; I11.0 Hypertensive heart disease with heart failure
CPT/HCPCS: 80069

== ENCOUNTER → 2017-10-06 | Outpatient (CLI) | payer MEDICARE ==
[2017-10-06 18:05] LABS: BASO % 0.4 % (0.0-1.0); EOS # 0.1 10^3/uL (0.0-0.50); EOS % 2.1 % (0.0-3.0); HEMATOCRIT 39.6 % (42.0-52.0); HEMOGLOBIN 12.1 g/dl (13.5-17.5); IMMATURE GRANULOCYTE % 0.6 % (0-3.0); LYMPH # 1.3 10^3/uL (1.5-4.5); LYMPH % 18.9 % (24.0-44.0); MEAN CORPUSCULAR HEMOGLOBIN 27.1 pg (27.0-33.0); MEAN CORPUSCULAR HGB CONC 30.6 g/dl (32.0-36.5); MEAN CORPUSCULAR VOLUME 88.8 fl (80.0-96.0); MONO # 0.6 10^3/uL (0.0-0.8); MONO % 9.4 % (0.0-5.0); NEUTROPHILS # 4.6 10^3/uL (1.8-7.7); NEUTROPHILS % 68.6 % (36.0-66.0); PLATELET COUNT, AUTOMATED 215 10^3/uL (150-450); RED BLOOD COUNT 4.46 10^6/uL (4.30-6.10); WHITE BLOOD COUNT 6.7 10^3/uL (4.0-10.0)
[2017-10-06 18:53] LABS: ESTIMATED AVERAGE GLUCOSE 120 MG/DL (60-110); HEMOGLOBIN A1c 5.8 %
[2017-10-06 19:12] LABS: ANION GAP 5 MEQ/L (8-16); BLOOD UREA NITROGEN 21 MG/DL (7-18); CARBON DIOXIDE LEVEL 39 MEQ/L (21-32); CHLORIDE LEVEL 95 MEQ/L (98-107); CREATININE FOR GFR 0.87 MG/DL (0.70-1.30); FERRITIN 48 NG/ML (26-388); FREE T4 0.89 NG/DL (0.76-1.46); GLOMERULAR FILTRATION RATE > 60.0 (>35); GLUCOSE, FASTING 156 MG/DL (70-100); IRON (FE) 39 UG/DL (65-175); PERCENT SATURATION 13.1 % (19.7-50.0); POTASSIUM SERUM 4.5 MEQ/L (3.5-5.1); SODIUM LEVEL 139 MEQ/L (136-145); TOTAL IRON BINDING CAPACITY 298 UG/DL (250-450)
== END ==
LOC: M SMT 12:58
DX: I48.1 Persistent atrial fibrillation (principal); D64.9 Anemia, unspecified; R73.01 Impaired fasting glucose
CPT/HCPCS: 83550

== ENCOUNTER → 2018-01-09 | Outpatient (CLI) | payer MEDICARE ==
[2018-01-09 13:30] LABS: BASO % 0.6 % (0.0-1.0); EOS # 0.1 10^3/uL (0.0-0.50); EOS % 1.8 % (0.0-3.0); HEMOGLOBIN 12.5 g/dl (13.5-17.5); IMMATURE GRANULOCYTE % 0.4 % (0-3.0); LYMPH # 0.9 10^3/uL (1.5-4.5); LYMPH % 17.1 % (24.0-44.0); MEAN CORPUSCULAR HEMOGLOBIN 25.9 pg (27.0-33.0); MEAN CORPUSCULAR HGB CONC 30.5 g/dl (32.0-36.5); MEAN CORPUSCULAR VOLUME 85.1 fl (80.0-96.0); MONO # 0.6 10^3/uL (0.0-0.8); NEUTROPHILS # 3.8 10^3/uL (1.8-7.7); NEUTROPHILS % 69.1 % (36.0-66.0); PLATELET COUNT, AUTOMATED 187 10^3/uL (150-450); RED BLOOD COUNT 4.82 10^6/uL (4.30-6.10); RED CELL DISTRIBUTION WIDTH 15.7 % (11.5-14.5); WHITE BLOOD COUNT 5.4 10^3/uL (4.0-10.0)
[2018-01-09 13:34] LABS: ALBUMIN 3.5 GM/DL (3.2-5.2); ALKALINE PHOSPHATASE 72 U/L (45-117); ALT/SGPT 15 U/L (12-78); ANION GAP 5 MEQ/L (8-16); AST/SGOT 7 U/L (7-37); BILIRUBIN,TOTAL 0.5 MG/DL (0.2-1.0); BLOOD UREA NITROGEN 17 MG/DL (7-18); CALCIUM LEVEL 8.8 MG/DL (8.8-10.2); CARBON DIOXIDE LEVEL 36 MEQ/L (21-32); CHLORIDE LEVEL 98 MEQ/L (98-107); CREATININE FOR GFR 0.88 MG/DL (0.70-1.30); GLOMERULAR FILTRATION RATE > 60.0 (>35); GLUCOSE, FASTING 112 MG/DL (70-100); IRON (FE) 53 UG/DL (65-175); PERCENT SATURATION 18.7 % (19.7-50.0); POTASSIUM SERUM 4.4 MEQ/L (3.5-5.1); SODIUM LEVEL 139 MEQ/L (136-145); TOTAL IRON BINDING CAPACITY 284 UG/DL (250-450); TOTAL PROTEIN 6.2 GM/DL (6.4-8.2)
[2018-01-09 13:48] LABS: ESTIMATED AVERAGE GLUCOSE 126 MG/DL (60-110)
== END ==
LOC: M SMT 10:00
DX: D64.9 Anemia, unspecified (principal); R73.01 Impaired fasting glucose
CPT/HCPCS: 83550

== ENCOUNTER → 2018-02-20 | Outpatient (CLI) | payer MEDICARE ==
[2018-02-20 13:07] LABS: BASO % 0.6 % (0.0-1.0); EOS # 0.2 10^3/uL (0.0-0.50); EOS % 3.1 % (0.0-3.0); HEMATOCRIT 42.3 % (42.0-52.0); HEMOGLOBIN 13.1 g/dl (13.5-17.5); IMMATURE GRANULOCYTE % 0.8 % (0-3.0); LYMPH # 0.8 10^3/uL (1.5-4.5); LYMPH % 16.4 % (24.0-44.0); MEAN CORPUSCULAR HEMOGLOBIN 26.4 pg (27.0-33.0); MEAN CORPUSCULAR VOLUME 85.3 fl (80.0-96.0); MONO # 0.5 10^3/uL (0.0-0.8); MONO % 10.2 % (0.0-5.0); NEUTROPHILS # 3.4 10^3/uL (1.8-7.7); NEUTROPHILS % 68.9 % (36.0-66.0); PLATELET COUNT, AUTOMATED 158 10^3/uL (150-450); RED BLOOD COUNT 4.96 10^6/uL (4.30-6.10); WHITE BLOOD COUNT 4.9 10^3/uL (4.0-10.0)
[2018-02-20 14:06] LABS: ALBUMIN 3.5 GM/DL (3.2-5.2); ALBUMIN/GLOBULIN RATIO 1.25 (1.00-1.93); ALKALINE PHOSPHATASE 75 U/L (45-117); ALT/SGPT 17 U/L (12-78); ANION GAP 5 MEQ/L (8-16); AST/SGOT 9 U/L (7-37); BILIRUBIN,TOTAL 0.4 MG/DL (0.2-1.0); BLOOD UREA NITROGEN 15 MG/DL (7-18); CALCIUM LEVEL 8.6 MG/DL (8.8-10.2); CARBON DIOXIDE LEVEL 35 MEQ/L (21-32); CHLORIDE LEVEL 100 MEQ/L (98-107); CREATININE FOR GFR 0.76 MG/DL (0.70-1.30); GLOMERULAR FILTRATION RATE > 60.0 (>35); GLUCOSE, FASTING 96 MG/DL (70-100); IRON (FE) 55 UG/DL (65-175); POTASSIUM SERUM 4.4 MEQ/L (3.5-5.1); SODIUM LEVEL 140 MEQ/L (136-145); TOTAL PROTEIN 6.3 GM/DL (6.4-8.2)
[2018-02-20 14:07] LABS: FERRITIN 52 NG/ML (26-388); PERCENT SATURATION 20.2 % (19.7-50.0); TOTAL IRON BINDING CAPACITY 272 UG/DL (250-450)
[2018-02-20 19:17] LABS: ESTIMATED AVERAGE GLUCOSE 126 MG/DL (60-110)
== END ==
LOC: M SMT 08:49
DX: I10 Essential (primary) hypertension (principal); D50.9 Iron deficiency anemia, unspecified; R73.01 Impaired fasting glucose
CPT/HCPCS: 83550

== ENCOUNTER 2018-03-02 10:10 | Inpatient (IN) | payer MEDICARE ==
[2018-03-02] MEDS: ONDANSETRON 4MG/2ML VIAL (J2405) IV (10:35)
[2018-03-02] MEDS: MORPHINE 2 MG/ML 1ML SYRINGE (J2270) IV ×4 (10:36→14:52)
[2018-03-02 10:53] LABS: BASO % 0.3 % (0.0-1.0); EOS # 0.1 10^3/uL (0.0-0.50); EOS % 1.6 % (0.0-3.0); HEMATOCRIT 41.2 % (42.0-52.0); HEMOGLOBIN 12.9 g/dl (13.5-17.5); IMMATURE GRANULOCYTE % 0.5 % (0-3.0); LYMPH # 1.2 10^3/uL (1.5-4.5); LYMPH % 15.7 % (24.0-44.0); MEAN CORPUSCULAR HEMOGLOBIN 26.4 pg (27.0-33.0); MEAN CORPUSCULAR HGB CONC 31.3 g/dl (32.0-36.5); MEAN CORPUSCULAR VOLUME 84.4 fl (80.0-96.0); MONO # 0.7 10^3/uL (0.0-0.8); MONO % 9.2 % (0.0-5.0); NEUTROPHILS # 5.5 10^3/uL (1.8-7.7); NEUTROPHILS % 72.7 % (36.0-66.0); PLATELET COUNT, AUTOMATED 170 10^3/uL (150-450); RED BLOOD COUNT 4.88 10^6/uL (4.30-6.10); RED CELL DISTRIBUTION WIDTH 15.9 % (11.5-14.5); WHITE BLOOD COUNT 7.5 10^3/uL (4.0-10.0)
[2018-03-02 11:05] LABS: INR 1.05; PROTHROMBIN TIME 13.8 SECONDS (12.1-14.4)
[2018-03-02 11:06] LABS: PARTIAL THROMBOPLASTIN TIME 32.5 SECONDS (25.4-37.6)
[2018-03-02 11:22] LABS: ALBUMIN 3.6 GM/DL (3.2-5.2); ALBUMIN/GLOBULIN RATIO 1.44 (1.00-1.93); ALKALINE PHOSPHATASE 72 U/L (45-117); ALT/SGPT 17 U/L (12-78); ANION GAP 6 MEQ/L (8-16); AST/SGOT 7 U/L (7-37); BILIRUBIN,DIRECT 0.2 MG/DL (0.0-0.2); BILIRUBIN,TOTAL 0.4 MG/DL (0.2-1.0); BLOOD UREA NITROGEN 13 MG/DL (7-18); CALCIUM LEVEL 8.7 MG/DL (8.8-10.2); CARBON DIOXIDE LEVEL 34 MEQ/L (21-32); CHLORIDE LEVEL 98 MEQ/L (98-107); CPK CREATINE PHOSPHOKINASE 47 U/L (39-308); CREATININE FOR GFR 0.78 MG/DL (0.70-1.30); FREE T4 1.02 NG/DL (0.76-1.46); GLOMERULAR FILTRATION RATE > 60.0 (>35); GLUCOSE, FASTING 166 MG/DL (70-100); MB/CK RELATIVE INDEX 4.68 (< OR =4); NT-PRO BNP 224 PG/ML (<450); POTASSIUM SERUM 4.2 MEQ/L (3.5-5.1); SODIUM LEVEL 138 MEQ/L (136-145); TOTAL PROTEIN 6.1 GM/DL (6.4-8.2); TROPONIN I < 0.02 NG/ML (< 0.10)
[2018-03-02] MEDS: NS 1,000 ML IV (12:45)
[2018-03-02 14:44] LABS: ABG BASE EXCESS 8.2 (-2.0-2.0); ABG HCO3 36.6 MEQ/L (22.0-26.0); ABG O2 SATURATION 96.7 % (95.0-99.0); ABG PARTIAL PRESSURE O2 89.8 mmHg (75.0-100.0); ABG TOTAL CO2 38.8 MEQ/L (23.0-31.0); ABG pH (ARTERIAL) 7.333 UNITS (7.350-7.450)
[2018-03-02] MEDS ORDERED: IPRATROPIUM 0.5MG/ALBUTEROL 2.5MG INH SOL UD 3ML (DUONEB)(J7620) NEB (14:45)
[2018-03-02 14:46] LABS: ABG PARTIAL PRESSURE CO2 70.6 mmHg (35.0-45.0)
[2018-03-02 14:58] LABS: CPK CREATINE PHOSPHOKINASE 54 U/L (39-308); MB/CK RELATIVE INDEX 4.26 (< OR =4); TROPONIN I < 0.02 NG/ML (< 0.10)
[2018-03-02] MEDS ORDERED: ONDANSETRON 4MG/2ML VIAL (J2405) IV (15:00)
[2018-03-02 15:24] LABS: ESTIMATED AVERAGE GLUCOSE 126 MG/DL (60-110)
[2018-03-02 15:26] LABS: DIGOXIN LEVEL 0.1 NG/ML (0.5-2.0)
[2018-03-02 16:43] LABS: ABG BASE EXCESS 5.4 (-2.0-2.0); ABG HCO3 33.1 MEQ/L (22.0-26.0); ABG O2 SATURATION 96.1 % (95.0-99.0); ABG PARTIAL PRESSURE O2 80.6 mmHg (75.0-100.0); ABG STANDARD HCO3 29.3 MEQ/L (22.0-26.0); ABG pH (ARTERIAL) 7.334 UNITS (7.350-7.450)
[2018-03-02 16:45] LABS: ABG PARTIAL PRESSURE CO2 63.6 mmHg (35.0-45.0)
[2018-03-02] MEDS: PERCOCET 5MG/325MG TAB PO (17:13)
[2018-03-02] MEDS: MORPHINE 4 MG/ML 1ML VIAL/SYRINGE (J2270) IV ×2 (17:13→23:23)
[2018-03-02] MEDS: IPRATROPIUM 0.5MG/ALBUTEROL 2.5MG INH SOL UD 3ML (DUONEB)(J7620) NEB (19:40)
[2018-03-02 20:19] LABS: CPK CREATINE PHOSPHOKINASE 53 U/L (39-308); TROPONIN I 0.02 NG/ML (< 0.10)
[2018-03-02] MEDS: SENOKOT S TAB PO (21:00)
[2018-03-02] MEDS: ADVAIR HFA 230/21MCG INHALER INH (21:00)
[2018-03-02] MEDS: HEPARIN SOD (PORCINE) 5000 UNITS/ML VIAL SC (21:00)
[2018-03-03] MEDS: PERCOCET 5MG/325MG TAB PO ×3 (01:05→15:03)
[2018-03-03] MEDS: IPRATROPIUM 0.5MG/ALBUTEROL 2.5MG INH SOL UD 3ML (DUONEB)(J7620) NEB ×4 (02:32→20:00)
[2018-03-03 05:56] LABS: HEMATOCRIT 35.4 % (42.0-52.0); MEAN CORPUSCULAR HGB CONC 31.1 g/dl (32.0-36.5); PLATELET COUNT, AUTOMATED 142 10^3/uL (150-450); RED BLOOD COUNT 4.07 10^6/uL (4.30-6.10); WHITE BLOOD COUNT 7.5 10^3/uL (4.0-10.0)
[2018-03-03 06:11] LABS: INR 0.99; PROTHROMBIN TIME 13.2 SECONDS (12.1-14.4)
[2018-03-03 06:19] LABS: ABG BASE EXCESS 4.3 (-2.0-2.0); ABG HCO3 32.7 MEQ/L (22.0-26.0); ABG O2 SATURATION 94.3 % (95.0-99.0); ABG PARTIAL PRESSURE O2 72.7 mmHg (75.0-100.0); ABG STANDARD HCO3 28.3 MEQ/L (22.0-26.0); ABG TOTAL CO2 34.9 MEQ/L (23.0-31.0); ABG pH (ARTERIAL) 7.289 UNITS (7.350-7.450)
[2018-03-03 06:21] LABS: ABG PARTIAL PRESSURE CO2 69.8 mmHg (35.0-45.0)
[2018-03-03 06:31] LABS: ALBUMIN 2.9 GM/DL (3.2-5.2); ALBUMIN/GLOBULIN RATIO 1.04 (1.00-1.93); ALKALINE PHOSPHATASE 63 U/L (45-117); ALT/SGPT 15 U/L (12-78); ANION GAP 2 MEQ/L (8-16); AST/SGOT 5 U/L (7-37); BILIRUBIN,TOTAL 0.3 MG/DL (0.2-1.0); BLOOD UREA NITROGEN 14 MG/DL (7-18); CARBON DIOXIDE LEVEL 36 MEQ/L (21-32); CHLORIDE LEVEL 101 MEQ/L (98-107); CREATININE FOR GFR 0.81 MG/DL (0.70-1.30); GLOMERULAR FILTRATION RATE > 60.0 (>35); GLUCOSE, FASTING 115 MG/DL (70-100); MAGNESIUM LEVEL 2.1 MG/DL (1.8-2.4); POTASSIUM SERUM 4.7 MEQ/L (3.5-5.1); SODIUM LEVEL 139 MEQ/L (136-145); TOTAL PROTEIN 5.7 GM/DL (6.4-8.2)
[2018-03-03] MEDS: TIOTROPIUM INHALER/CAPSULE (SPIRIVA) INH (08:38)
[2018-03-03] MEDS: ADVAIR HFA 230/21MCG INHALER INH ×2 (08:39→21:00)
[2018-03-03] MEDS: TAMSULOSIN 0.4 MG CAP PO (09:20)
[2018-03-03] MEDS: SENOKOT S TAB PO ×2 (09:20→20:18)
[2018-03-03] MEDS: FINASTERIDE 5 MG TAB PO (09:21)
[2018-03-03] MEDS: amLODIPine 10 MG TAB PO (09:21)
[2018-03-03] MEDS: DIGOXIN 0.125 MG TAB PO (09:22)
[2018-03-03] MEDS: HEPARIN SOD (PORCINE) 5000 UNITS/ML VIAL SQ (11:49)
[2018-03-03] MEDS: PREVNAR 13 VACCINE SYRINGE (CPT CODE:90670) IM (12:47)
[2018-03-03] MEDS: INFLUENZA VIRUS VACCINE HIGH DOSE 0.5 ML SYRINGE (90662) IM (12:49)
[2018-03-03] MEDS: MORPHINE 4 MG/ML 1ML VIAL/SYRINGE (J2270) IV ×3 (16:00→22:55)
[2018-03-04] MEDS: MORPHINE 4 MG/ML 1ML VIAL/SYRINGE (J2270) IV (01:12)
[2018-03-04] MEDS: IPRATROPIUM 0.5MG/ALBUTEROL 2.5MG INH SOL UD 3ML (DUONEB)(J7620) NEB ×4 (02:00→20:00)
[2018-03-04 05:41] LABS: HEMATOCRIT 32.4 % (42.0-52.0); HEMOGLOBIN 10.2 g/dl (13.5-17.5); MEAN CORPUSCULAR HEMOGLOBIN 26.3 pg (27.0-33.0); MEAN CORPUSCULAR HGB CONC 31.5 g/dl (32.0-36.5); MEAN CORPUSCULAR VOLUME 83.5 fl (80.0-96.0); PLATELET COUNT, AUTOMATED 120 10^3/uL (150-450); RED BLOOD COUNT 3.88 10^6/uL (4.30-6.10); WHITE BLOOD COUNT 8.9 10^3/uL (4.0-10.0)
[2018-03-04 06:11] LABS: ALBUMIN 2.9 GM/DL (3.2-5.2); ALBUMIN/GLOBULIN RATIO 1.21 (1.00-1.93); ALKALINE PHOSPHATASE 62 U/L (45-117); ALT/SGPT 13 U/L (12-78); ANION GAP 5 MEQ/L (8-16); AST/SGOT 7 U/L (7-37); BILIRUBIN,TOTAL 0.5 MG/DL (0.2-1.0); BLOOD UREA NITROGEN 15 MG/DL (7-18); CALCIUM LEVEL 8.1 MG/DL (8.8-10.2); CARBON DIOXIDE LEVEL 33 MEQ/L (21-32); CHLORIDE LEVEL 99 MEQ/L (98-107); CREATININE FOR GFR 0.62 MG/DL (0.70-1.30); GLOMERULAR FILTRATION RATE > 60.0 (>35); GLUCOSE, FASTING 116 MG/DL (70-100); MAGNESIUM LEVEL 2.1 MG/DL (1.8-2.4); POTASSIUM SERUM 4.5 MEQ/L (3.5-5.1); SODIUM LEVEL 137 MEQ/L (136-145); TOTAL PROTEIN 5.3 GM/DL (6.4-8.2)
[2018-03-04] MEDS: PERCOCET 5MG/325MG TAB PO ×4 (06:36→23:31)
[2018-03-04] MEDS: ADVAIR HFA 230/21MCG INHALER INH ×2 (08:02→20:53)
[2018-03-04] MEDS: TIOTROPIUM INHALER/CAPSULE (SPIRIVA) INH (08:05)
[2018-03-04] MEDS: FINASTERIDE 5 MG TAB PO (09:54)
[2018-03-04] MEDS: DIGOXIN 0.125 MG TAB PO (09:54)
[2018-03-04] MEDS: TAMSULOSIN 0.4 MG CAP PO (09:54)
[2018-03-04] MEDS: amLODIPine 10 MG TAB PO (09:54)
[2018-03-04] MEDS: SENOKOT S TAB PO ×2 (09:54→21:06)
[2018-03-04] MEDS: HEPARIN SOD (PORCINE) 5000 UNITS/ML VIAL SQ (09:54)
[2018-03-05] MEDS: IPRATROPIUM 0.5MG/ALBUTEROL 2.5MG INH SOL UD 3ML (DUONEB)(J7620) NEB ×3 (01:21→20:00)
[2018-03-05 05:27] LABS: HEMATOCRIT 31.3 % (42.0-52.0); HEMOGLOBIN 10.1 g/dl (13.5-17.5); MEAN CORPUSCULAR HEMOGLOBIN 26.6 pg (27.0-33.0); MEAN CORPUSCULAR HGB CONC 32.3 g/dl (32.0-36.5); MEAN CORPUSCULAR VOLUME 82.6 fl (80.0-96.0); PLATELET COUNT, AUTOMATED 142 10^3/uL (150-450); RED BLOOD COUNT 3.79 10^6/uL (4.30-6.10); RED CELL DISTRIBUTION WIDTH 15.9 % (11.5-14.5); WHITE BLOOD COUNT 8.7 10^3/uL (4.0-10.0)
[2018-03-05 05:44] LABS: ALBUMIN 2.8 GM/DL (3.2-5.2); ALKALINE PHOSPHATASE 63 U/L (45-117); ALT/SGPT 14 U/L (12-78); ANION GAP 7 MEQ/L (8-16); AST/SGOT 14 U/L (7-37); BILIRUBIN,TOTAL 0.7 MG/DL (0.2-1.0); BLOOD UREA NITROGEN 13 MG/DL (7-18); CALCIUM LEVEL 8.6 MG/DL (8.8-10.2); CARBON DIOXIDE LEVEL 31 MEQ/L (21-32); CHLORIDE LEVEL 98 MEQ/L (98-107); CREATININE FOR GFR 0.64 MG/DL (0.70-1.30); GLOMERULAR FILTRATION RATE > 60.0 (>35); GLUCOSE, FASTING 124 MG/DL (70-100); POTASSIUM SERUM 4.2 MEQ/L (3.5-5.1); SODIUM LEVEL 136 MEQ/L (136-145); TOTAL PROTEIN 5.9 GM/DL (6.4-8.2)
[2018-03-05] MEDS: TIOTROPIUM INHALER/CAPSULE (SPIRIVA) INH (08:46)
[2018-03-05] MEDS: ADVAIR HFA 230/21MCG INHALER INH ×2 (08:46→20:31)
[2018-03-05] MEDS: TAMSULOSIN 0.4 MG CAP PO (08:52)
[2018-03-05] MEDS: amLODIPine 10 MG TAB PO (08:52)
[2018-03-05] MEDS: SENOKOT S TAB PO ×2 (08:52→21:27)
[2018-03-05] MEDS: FINASTERIDE 5 MG TAB PO (08:52)
[2018-03-05] MEDS: DIGOXIN 0.125 MG TAB PO (08:53)
[2018-03-05] MEDS ORDERED: MIDAZOLAM INJ 2 MG/2 ML VIAL (J2250) As Ordered (12:11)
[2018-03-05] MEDS ORDERED: KETAMINE HCL 200 MG/20 ML VIAL As Ordered (12:11)
[2018-03-05] MEDS ORDERED: fentaNYL 100 MCG/2 ML INJECTION (J3010) As Ordered (12:12)
[2018-03-05] MEDS ORDERED: ceFAZolin 2 GM/D5W 50 ML IV BAG (J0690 PER 500MG) As Ordered (13:15)
[2018-03-05] MEDS ORDERED: BUPIVACAINE/DEXTROSE 0.75% 2 ML AMP As Ordered (13:30)
[2018-03-05] MEDS ORDERED: PHENYLephrine HCL 500 MCG/5 ML (100MCG/ML) SYRINGE (J2370) As Ordered (13:52)
[2018-03-05] MEDS ORDERED: ESMOLOL INJ 100MG/10ML VIAL As Ordered (13:52)
[2018-03-05] MEDS ORDERED: ePHEDrine SULFATE 25 MG/5 ML(5MG/ML) SYRINGE As Ordered (13:52)
[2018-03-05] MEDS ORDERED: PROPOFOL 200 MG/20 ML VIAL As Ordered (14:05)
[2018-03-05] MEDS: ceFAZolin 1GM INJ (J0690 PER 500MG) As Ordered (14:06)
[2018-03-05] MEDS ORDERED: ONDANSETRON 4MG/2ML VIAL (J2405) IV (15:45)
[2018-03-05] MEDS: LR 1,000 ML IV (15:45)
[2018-03-05] MEDS ORDERED: HYDROMORPHONE HCL 0.5 MG/ 0.5 ML SYRINGE (J1170 PER 1) IV (15:45)
[2018-03-05] MEDS ORDERED: fentaNYL 100 MCG/2 ML INJECTION (J3010) IV (15:45)
[2018-03-05] MEDS ORDERED: PERCOCET 5MG/325MG TAB PO (15:45)
[2018-03-05] MEDS: MORPHINE 4 MG/ML 1ML VIAL/SYRINGE (J2270) IV (21:09)
[2018-03-05] MEDS: RAMELTEON 8 MG TAB (ROZEREM) PO (23:38)
[2018-03-06] MEDS: PERCOCET 5MG/325MG TAB PO ×2 (00:38→08:36)
[2018-03-06] MEDS: IPRATROPIUM 0.5MG/ALBUTEROL 2.5MG INH SOL UD 3ML (DUONEB)(J7620) NEB ×4 (01:17→20:00)
[2018-03-06 05:54] LABS: HEMATOCRIT 26.8 % (42.0-52.0); HEMOGLOBIN 8.6 g/dl (13.5-17.5); MEAN CORPUSCULAR HEMOGLOBIN 26.5 pg (27.0-33.0); MEAN CORPUSCULAR HGB CONC 32.1 g/dl (32.0-36.5); MEAN CORPUSCULAR VOLUME 82.5 fl (80.0-96.0); PLATELET COUNT, AUTOMATED 131 10^3/uL (150-450); RED BLOOD COUNT 3.25 10^6/uL (4.30-6.10); RED CELL DISTRIBUTION WIDTH 15.7 % (11.5-14.5); WHITE BLOOD COUNT 7.5 10^3/uL (4.0-10.0)
[2018-03-06 06:05] LABS: ALBUMIN 2.4 GM/DL (3.2-5.2); ALBUMIN/GLOBULIN RATIO 0.86 (1.00-1.93); ALKALINE PHOSPHATASE 52 U/L (45-117); ALT/SGPT 15 U/L (12-78); ANION GAP 4 MEQ/L (8-16); AST/SGOT 26 U/L (7-37); BILIRUBIN,TOTAL 0.7 MG/DL (0.2-1.0); BLOOD UREA NITROGEN 16 MG/DL (7-18); CALCIUM LEVEL 7.5 MG/DL (8.8-10.2); CARBON DIOXIDE LEVEL 34 MEQ/L (21-32); CHLORIDE LEVEL 97 MEQ/L (98-107); CREATININE FOR GFR 0.73 MG/DL (0.70-1.30); GLOMERULAR FILTRATION RATE > 60.0 (>35); GLUCOSE, FASTING 121 MG/DL (70-100); MAGNESIUM LEVEL 1.8 MG/DL (1.8-2.4); POTASSIUM SERUM 4.3 MEQ/L (3.5-5.1); SODIUM LEVEL 135 MEQ/L (136-145); TOTAL PROTEIN 5.2 GM/DL (6.4-8.2)
[2018-03-06] MEDS: MOM 30ML SUSPENSION UDC PO (08:31)
[2018-03-06] MEDS: FINASTERIDE 5 MG TAB PO (08:32)
[2018-03-06] MEDS: TAMSULOSIN 0.4 MG CAP PO (08:32)
[2018-03-06] MEDS: DIGOXIN 0.125 MG TAB PO (08:33)
[2018-03-06] MEDS: SENOKOT S TAB PO ×2 (08:35→20:56)
[2018-03-06] MEDS: amLODIPine 10 MG TAB PO (08:35)
[2018-03-06] MEDS: MIRALAX *UNIT DOSE* 17GM PACKET PO (08:35)
[2018-03-06] MEDS: TIOTROPIUM INHALER/CAPSULE (SPIRIVA) INH (09:50)
[2018-03-06] MEDS: ADVAIR HFA 230/21MCG INHALER INH ×2 (09:51→20:31)
[2018-03-06 10:27] LABS: IMMEDIATE SPIN CROSSMATCH 1 1
[2018-03-06] MEDS: ACETAMINOPHEN TAB 650MG DOSE (2X325MG) PO (21:40)
[2018-03-07] MEDS: IPRATROPIUM 0.5MG/ALBUTEROL 2.5MG INH SOL UD 3ML (DUONEB)(J7620) NEB ×4 (02:00→20:00)
[2018-03-07 05:56] LABS: HEMATOCRIT 28.9 % (42.0-52.0); HEMOGLOBIN 9.3 g/dl (13.5-17.5); MEAN CORPUSCULAR HGB CONC 32.2 g/dl (32.0-36.5); PLATELET COUNT, AUTOMATED 147 10^3/uL (150-450); RED BLOOD COUNT 3.44 10^6/uL (4.30-6.10); RED CELL DISTRIBUTION WIDTH 15.8 % (11.5-14.5); WHITE BLOOD COUNT 6.8 10^3/uL (4.0-10.0)
[2018-03-07 06:22] LABS: ALBUMIN 2.2 GM/DL (3.2-5.2); ALBUMIN/GLOBULIN RATIO 0.71 (1.00-1.93); ALKALINE PHOSPHATASE 56 U/L (45-117); ALT/SGPT 15 U/L (12-78); ANION GAP 4 MEQ/L (8-16); AST/SGOT 20 U/L (7-37); BILIRUBIN,TOTAL 0.8 MG/DL (0.2-1.0); BLOOD UREA NITROGEN 20 MG/DL (7-18); CALCIUM LEVEL 7.8 MG/DL (8.8-10.2); CARBON DIOXIDE LEVEL 34 MEQ/L (21-32); CHLORIDE LEVEL 97 MEQ/L (98-107); CREATININE FOR GFR 0.68 MG/DL (0.70-1.30); GLOMERULAR FILTRATION RATE > 60.0 (>35); GLUCOSE, FASTING 119 MG/DL (70-100); MAGNESIUM LEVEL 2.1 MG/DL (1.8-2.4); POTASSIUM SERUM 4.4 MEQ/L (3.5-5.1); SODIUM LEVEL 135 MEQ/L (136-145); TOTAL PROTEIN 5.3 GM/DL (6.4-8.2)
[2018-03-07] MEDS: ADVAIR HFA 230/21MCG INHALER INH ×2 (07:34→20:52)
[2018-03-07] MEDS: TIOTROPIUM INHALER/CAPSULE (SPIRIVA) INH (07:34)
[2018-03-07] MEDS: MIRALAX *UNIT DOSE* 17GM PACKET PO (08:14)
[2018-03-07] MEDS: SENOKOT S TAB PO ×2 (08:14→20:31)
[2018-03-07] MEDS: MOM 30ML SUSPENSION UDC PO (08:14)
[2018-03-07] MEDS: TAMSULOSIN 0.4 MG CAP PO (08:14)
[2018-03-07] MEDS: FINASTERIDE 5 MG TAB PO (08:14)
[2018-03-07] MEDS: amLODIPine 10 MG TAB PO (08:15)
[2018-03-07] MEDS: ACETAMINOPHEN TAB 650MG DOSE (2X325MG) PO (08:16)
[2018-03-07] MEDS: DIGOXIN 0.125 MG TAB PO (08:16)
[2018-03-07] MEDS: APIXABAN 2.5 MG TAB (ELIQUIS) PO ×2 (09:43→20:31)
[2018-03-07 10:55] LABS: IMMEDIATE SPIN CROSSMATCH 1 1
[2018-03-07] MEDS ORDERED: SLF 3 ML SYR IV (12:30)
[2018-03-07] MEDS: SLF 3 ML SYR IV ×2 (13:20→20:31)
[2018-03-07] MEDS: PERCOCET 5MG/325MG TAB PO (20:32)
[2018-03-08] MEDS: IPRATROPIUM 0.5MG/ALBUTEROL 2.5MG INH SOL UD 3ML (DUONEB)(J7620) NEB ×4 (02:00→21:20)
[2018-03-08] MEDS: PERCOCET 5MG/325MG TAB PO ×2 (02:36→21:31)
[2018-03-08] MEDS: SLF 3 ML SYR IV ×3 (05:31→21:24)
[2018-03-08 06:19] LABS: HEMATOCRIT 29.2 % (42.0-52.0); HEMOGLOBIN 9.6 g/dl (13.5-17.5); MEAN CORPUSCULAR HEMOGLOBIN 27.4 pg (27.0-33.0); MEAN CORPUSCULAR HGB CONC 32.9 g/dl (32.0-36.5); MEAN CORPUSCULAR VOLUME 83.4 fl (80.0-96.0); PLATELET COUNT, AUTOMATED 153 10^3/uL (150-450); WHITE BLOOD COUNT 6.3 10^3/uL (4.0-10.0)
[2018-03-08 06:53] LABS: ALBUMIN 2.3 GM/DL (3.2-5.2); ALBUMIN/GLOBULIN RATIO 0.88 (1.00-1.93); ALKALINE PHOSPHATASE 79 U/L (45-117); ALT/SGPT 30 U/L (12-78); ANION GAP 7 MEQ/L (8-16); AST/SGOT 24 U/L (7-37); BILIRUBIN,TOTAL 0.8 MG/DL (0.2-1.0); BLOOD UREA NITROGEN 22 MG/DL (7-18); CARBON DIOXIDE LEVEL 33 MEQ/L (21-32); CHLORIDE LEVEL 100 MEQ/L (98-107); CREATININE FOR GFR 0.64 MG/DL (0.70-1.30); GLOMERULAR FILTRATION RATE > 60.0 (>35); GLUCOSE, FASTING 109 MG/DL (70-100); MAGNESIUM LEVEL 2.4 MG/DL (1.8-2.4); POTASSIUM SERUM 4.3 MEQ/L (3.5-5.1); SODIUM LEVEL 140 MEQ/L (136-145); TOTAL PROTEIN 4.9 GM/DL (6.4-8.2)
[2018-03-08 07:54] LABS: DIGOXIN LEVEL 0.6 NG/ML (0.5-2.0)
[2018-03-08] MEDS: ADVAIR HFA 230/21MCG INHALER INH ×2 (07:58→21:19)
[2018-03-08] MEDS: TIOTROPIUM INHALER/CAPSULE (SPIRIVA) INH (07:58)
[2018-03-08] MEDS: MOM 30ML SUSPENSION UDC PO (08:43)
[2018-03-08] MEDS: SENOKOT S TAB PO ×2 (08:43→21:25)
[2018-03-08] MEDS: FINASTERIDE 5 MG TAB PO (08:43)
[2018-03-08] MEDS: amLODIPine 10 MG TAB PO (08:43)
[2018-03-08] MEDS: APIXABAN 2.5 MG TAB (ELIQUIS) PO ×2 (08:43→21:25)
[2018-03-08] MEDS: TAMSULOSIN 0.4 MG CAP PO (08:43)
[2018-03-08] MEDS: MIRALAX *UNIT DOSE* 17GM PACKET PO (08:43)
[2018-03-08] MEDS: DIGOXIN 0.125 MG TAB PO (08:43)
[2018-03-08] MEDS: FUROSEMIDE 20 MG/2 ML VIAL (J1940) IV (13:52)
[2018-03-08] MEDS: METOPROLOL TART 12.5 MG PER 1/2 TAB PO ×2 (14:00→21:25)
[2018-03-09] MEDS: IPRATROPIUM 0.5MG/ALBUTEROL 2.5MG INH SOL UD 3ML (DUONEB)(J7620) NEB ×4 (01:02→20:00)
[2018-03-09] MEDS: PERCOCET 5MG/325MG TAB PO ×2 (01:57→21:27)
[2018-03-09 06:44] LABS: HEMATOCRIT 30.7 % (42.0-52.0); HEMOGLOBIN 9.8 g/dl (13.5-17.5); MEAN CORPUSCULAR HEMOGLOBIN 26.9 pg (27.0-33.0); MEAN CORPUSCULAR HGB CONC 31.9 g/dl (32.0-36.5); MEAN CORPUSCULAR VOLUME 84.3 fl (80.0-96.0); PLATELET COUNT, AUTOMATED 208 10^3/uL (150-450); RED BLOOD COUNT 3.64 10^6/uL (4.30-6.10); RED CELL DISTRIBUTION WIDTH 16.1 % (11.5-14.5); WHITE BLOOD COUNT 6.3 10^3/uL (4.0-10.0)
[2018-03-09] MEDS: SLF 3 ML SYR IV ×3 (06:55→21:28)
[2018-03-09] MEDS: METOPROLOL TART 12.5 MG PER 1/2 TAB PO ×3 (06:55→21:28)
[2018-03-09 07:06] LABS: ALBUMIN 2.4 GM/DL (3.2-5.2); ALBUMIN/GLOBULIN RATIO 0.73 (1.00-1.93); ALKALINE PHOSPHATASE 88 U/L (45-117); ALT/SGPT 38 U/L (12-78); ANION GAP 6 MEQ/L (8-16); AST/SGOT 20 U/L (7-37); BILIRUBIN,TOTAL 0.8 MG/DL (0.2-1.0); BLOOD UREA NITROGEN 23 MG/DL (7-18); CALCIUM LEVEL 8.5 MG/DL (8.8-10.2); CARBON DIOXIDE LEVEL 34 MEQ/L (21-32); CHLORIDE LEVEL 98 MEQ/L (98-107); CREATININE FOR GFR 0.65 MG/DL (0.70-1.30); GLOMERULAR FILTRATION RATE > 60.0 (>35); GLUCOSE, FASTING 102 MG/DL (70-100); MAGNESIUM LEVEL 2.5 MG/DL (1.8-2.4); POTASSIUM SERUM 4.3 MEQ/L (3.5-5.1); SODIUM LEVEL 138 MEQ/L (136-145); TOTAL PROTEIN 5.7 GM/DL (6.4-8.2)
[2018-03-09] MEDS: ADVAIR HFA 230/21MCG INHALER INH ×2 (08:06→20:41)
[2018-03-09] MEDS: TIOTROPIUM INHALER/CAPSULE (SPIRIVA) INH (08:06)
[2018-03-09] MEDS: MIRALAX *UNIT DOSE* 17GM PACKET PO (10:19)
[2018-03-09] MEDS: amLODIPine 10 MG TAB PO (10:23)
[2018-03-09] MEDS: TAMSULOSIN 0.4 MG CAP PO (10:23)
[2018-03-09] MEDS: SENOKOT S TAB PO ×2 (10:23→21:27)
[2018-03-09] MEDS: MOM 30ML SUSPENSION UDC PO (10:24)
[2018-03-09] MEDS: DIGOXIN 0.125 MG TAB PO (10:26)
[2018-03-09] MEDS: APIXABAN 2.5 MG TAB (ELIQUIS) PO ×2 (10:26→21:27)
[2018-03-09] MEDS: FINASTERIDE 5 MG TAB PO (10:34)
[2018-03-10] MEDS: IPRATROPIUM 0.5MG/ALBUTEROL 2.5MG INH SOL UD 3ML (DUONEB)(J7620) NEB ×4 (01:46→20:00)
[2018-03-10] MEDS: PERCOCET 5MG/325MG TAB PO ×2 (01:52→21:21)
[2018-03-10] MEDS: METOPROLOL TART 12.5 MG PER 1/2 TAB PO ×2 (05:19→21:22)
[2018-03-10] MEDS: SLF 3 ML SYR IV ×3 (05:19→21:22)
[2018-03-10 07:29] LABS: HEMOGLOBIN 10.1 g/dl (13.5-17.5); MEAN CORPUSCULAR HEMOGLOBIN 27.3 pg (27.0-33.0); MEAN CORPUSCULAR HGB CONC 31.6 g/dl (32.0-36.5); MEAN CORPUSCULAR VOLUME 86.5 fl (80.0-96.0); PLATELET COUNT, AUTOMATED 237 10^3/uL (150-450); RED CELL DISTRIBUTION WIDTH 16.2 % (11.5-14.5); WHITE BLOOD COUNT 6.7 10^3/uL (4.0-10.0)
[2018-03-10] MEDS: ADVAIR HFA 230/21MCG INHALER INH ×2 (07:33→20:52)
[2018-03-10] MEDS: TIOTROPIUM INHALER/CAPSULE (SPIRIVA) INH (07:33)
[2018-03-10 07:57] LABS: ANION GAP 7 MEQ/L (8-16); BLOOD UREA NITROGEN 26 MG/DL (7-18); CALCIUM LEVEL 7.7 MG/DL (8.8-10.2); CARBON DIOXIDE LEVEL 33 MEQ/L (21-32); CHLORIDE LEVEL 100 MEQ/L (98-107); CREATININE FOR GFR 0.61 MG/DL (0.70-1.30); GLOMERULAR FILTRATION RATE > 60.0 (>35); GLUCOSE, FASTING 109 MG/DL (70-100); POTASSIUM SERUM 4.6 MEQ/L (3.5-5.1); SODIUM LEVEL 140 MEQ/L (136-145)
[2018-03-10] MEDS: MIRALAX *UNIT DOSE* 17GM PACKET PO (10:13)
[2018-03-10] MEDS: MOM 30ML SUSPENSION UDC PO (10:13)
[2018-03-10] MEDS: FINASTERIDE 5 MG TAB PO (10:14)
[2018-03-10] MEDS: TAMSULOSIN 0.4 MG CAP PO (10:14)
[2018-03-10] MEDS: amLODIPine 10 MG TAB PO (10:16)
[2018-03-10] MEDS: SENOKOT S TAB PO ×2 (10:16→21:21)
[2018-03-10] MEDS: DIGOXIN 0.125 MG TAB PO (10:17)
[2018-03-10] MEDS: APIXABAN 2.5 MG TAB (ELIQUIS) PO ×2 (10:17→21:20)
[2018-03-10] MEDS: LACTULOSE 20 GM/30 ML SYRUP UD PO (11:45)
[2018-03-11] MEDS: IPRATROPIUM 0.5MG/ALBUTEROL 2.5MG INH SOL UD 3ML (DUONEB)(J7620) NEB ×4 (01:08→20:58)
[2018-03-11] MEDS: PERCOCET 5MG/325MG TAB PO ×3 (03:09→21:41)
[2018-03-11] MEDS: SLF 3 ML SYR IV ×3 (05:57→21:41)
[2018-03-11 06:49] LABS: HEMATOCRIT 31.7 % (42.0-52.0); HEMOGLOBIN 9.8 g/dl (13.5-17.5); MEAN CORPUSCULAR HEMOGLOBIN 26.7 pg (27.0-33.0); MEAN CORPUSCULAR HGB CONC 30.9 g/dl (32.0-36.5); MEAN CORPUSCULAR VOLUME 86.4 fl (80.0-96.0); PLATELET COUNT, AUTOMATED 246 10^3/uL (150-450); RED BLOOD COUNT 3.67 10^6/uL (4.30-6.10); RED CELL DISTRIBUTION WIDTH 16.2 % (11.5-14.5); WHITE BLOOD COUNT 6.2 10^3/uL (4.0-10.0)
[2018-03-11 07:12] LABS: ANION GAP 6 MEQ/L (8-16); BLOOD UREA NITROGEN 26 MG/DL (7-18); CALCIUM LEVEL 8.3 MG/DL (8.8-10.2); CARBON DIOXIDE LEVEL 34 MEQ/L (21-32); CHLORIDE LEVEL 101 MEQ/L (98-107); CREATININE FOR GFR 0.64 MG/DL (0.70-1.30); GLOMERULAR FILTRATION RATE > 60.0 (>35); GLUCOSE, FASTING 102 MG/DL (70-100); POTASSIUM SERUM 4.6 MEQ/L (3.5-5.1); SODIUM LEVEL 141 MEQ/L (136-145)
[2018-03-11] MEDS: ADVAIR HFA 230/21MCG INHALER INH ×2 (07:35→20:58)
[2018-03-11] MEDS: TIOTROPIUM INHALER/CAPSULE (SPIRIVA) INH (07:35)
[2018-03-11] MEDS: MIRALAX *UNIT DOSE* 17GM PACKET PO (09:00)
[2018-03-11] MEDS: SENOKOT S TAB PO ×2 (09:00→21:40)
[2018-03-11] MEDS: SPIRONOLACTONE 12.5MG PER 1/2 TABLET PO (09:00)
[2018-03-11] MEDS: MOM 30ML SUSPENSION UDC PO (09:00)
[2018-03-11] MEDS: TAMSULOSIN 0.4 MG CAP PO (10:15)
[2018-03-11] MEDS: APIXABAN 2.5 MG TAB (ELIQUIS) PO ×2 (10:18→21:40)
[2018-03-11] MEDS: DIGOXIN 0.125 MG TAB PO (10:18)
[2018-03-11] MEDS: METOPROLOL TART 12.5 MG PER 1/2 TAB PO ×2 (10:18→21:41)
[2018-03-11] MEDS: amLODIPine 10 MG TAB PO (10:19)
[2018-03-11] MEDS: FINASTERIDE 5 MG TAB PO (10:19)
[2018-03-11] MEDS: FUROSEMIDE 40 MG/4 ML VIAL (J1940) IV (13:42)
[2018-03-12] MEDS: IPRATROPIUM 0.5MG/ALBUTEROL 2.5MG INH SOL UD 3ML (DUONEB)(J7620) NEB ×4 (02:00→20:36)
[2018-03-12] MEDS: PERCOCET 5MG/325MG TAB PO ×3 (02:24→21:31)
[2018-03-12] MEDS: SLF 3 ML SYR IV ×3 (05:37→21:32)
[2018-03-12 06:39] LABS: HEMATOCRIT 30.8 % (42.0-52.0); HEMOGLOBIN 9.4 g/dl (13.5-17.5); MEAN CORPUSCULAR HEMOGLOBIN 26.8 pg (27.0-33.0); MEAN CORPUSCULAR HGB CONC 30.5 g/dl (32.0-36.5); MEAN CORPUSCULAR VOLUME 87.7 fl (80.0-96.0); PLATELET COUNT, AUTOMATED 243 10^3/uL (150-450); RED BLOOD COUNT 3.51 10^6/uL (4.30-6.10); RED CELL DISTRIBUTION WIDTH 16.2 % (11.5-14.5); WHITE BLOOD COUNT 5.9 10^3/uL (4.0-10.0)
[2018-03-12 07:04] LABS: ANION GAP 4 MEQ/L (8-16); BLOOD UREA NITROGEN 30 MG/DL (7-18); CALCIUM LEVEL 8.3 MG/DL (8.8-10.2); CARBON DIOXIDE LEVEL 36 MEQ/L (21-32); CHLORIDE LEVEL 100 MEQ/L (98-107); GLOMERULAR FILTRATION RATE > 60.0 (>35); GLUCOSE, FASTING 100 MG/DL (70-100); POTASSIUM SERUM 4.5 MEQ/L (3.5-5.1); SODIUM LEVEL 140 MEQ/L (136-145)
[2018-03-12] MEDS: ADVAIR HFA 230/21MCG INHALER INH ×2 (08:36→20:37)
[2018-03-12] MEDS: TIOTROPIUM INHALER/CAPSULE (SPIRIVA) INH (08:37)
[2018-03-12] MEDS: MIRALAX *UNIT DOSE* 17GM PACKET PO (09:00)
[2018-03-12] MEDS: MOM 30ML SUSPENSION UDC PO (09:00)
[2018-03-12] MEDS: FINASTERIDE 5 MG TAB PO (10:09)
[2018-03-12] MEDS: DIGOXIN 0.125 MG TAB PO (10:09)
[2018-03-12] MEDS: SPIRONOLACTONE 12.5MG PER 1/2 TABLET PO (10:09)
[2018-03-12] MEDS: SENOKOT S TAB PO ×2 (10:09→21:31)
[2018-03-12] MEDS: APIXABAN 2.5 MG TAB (ELIQUIS) PO ×2 (10:10→21:31)
[2018-03-12] MEDS: TAMSULOSIN 0.4 MG CAP PO (10:10)
[2018-03-12] MEDS: FUROSEMIDE 40 MG TAB PO (10:10)
[2018-03-12] MEDS: amLODIPine 10 MG TAB PO (10:11)
[2018-03-12] MEDS: FUROSEMIDE 40 MG/4 ML VIAL (J1940) IV (12:30)
[2018-03-12 15:57] LABS: MAGNESIUM LEVEL 2.1 MG/DL (1.8-2.4)
[2018-03-13] MEDS: IPRATROPIUM 0.5MG/ALBUTEROL 2.5MG INH SOL UD 3ML (DUONEB)(J7620) NEB ×3 (01:25→13:23)
[2018-03-13] MEDS: PERCOCET 5MG/325MG TAB PO (02:14)
[2018-03-13] MEDS: SLF 3 ML SYR IV ×2 (04:59→14:00)
[2018-03-13 06:36] LABS: HEMATOCRIT 29.1 % (42.0-52.0); MEAN CORPUSCULAR HEMOGLOBIN 26.5 pg (27.0-33.0); MEAN CORPUSCULAR HGB CONC 30.9 g/dl (32.0-36.5); MEAN CORPUSCULAR VOLUME 85.8 fl (80.0-96.0); PLATELET COUNT, AUTOMATED 263 10^3/uL (150-450); RED BLOOD COUNT 3.39 10^6/uL (4.30-6.10); RED CELL DISTRIBUTION WIDTH 16.1 % (11.5-14.5); WHITE BLOOD COUNT 6.2 10^3/uL (4.0-10.0)
[2018-03-13 07:00] LABS: ANION GAP 6 MEQ/L (8-16); BLOOD UREA NITROGEN 32 MG/DL (7-18); CALCIUM LEVEL 8.3 MG/DL (8.8-10.2); CARBON DIOXIDE LEVEL 37 MEQ/L (21-32); CHLORIDE LEVEL 96 MEQ/L (98-107); CREATININE FOR GFR 0.74 MG/DL (0.70-1.30); GLOMERULAR FILTRATION RATE > 60.0 (>35); GLUCOSE, FASTING 107 MG/DL (70-100); POTASSIUM SERUM 4.2 MEQ/L (3.5-5.1); SODIUM LEVEL 139 MEQ/L (136-145)
[2018-03-13] MEDS: ADVAIR HFA 230/21MCG INHALER INH (08:56)
[2018-03-13] MEDS: TIOTROPIUM INHALER/CAPSULE (SPIRIVA) INH (08:57)
[2018-03-13] MEDS: MIRALAX *UNIT DOSE* 17GM PACKET PO (09:00)
[2018-03-13] MEDS: MOM 30ML SUSPENSION UDC PO (09:00)
[2018-03-13] MEDS: SPIRONOLACTONE 12.5MG PER 1/2 TABLET PO (09:15)
[2018-03-13] MEDS: FINASTERIDE 5 MG TAB PO (09:15)
[2018-03-13] MEDS: APIXABAN 2.5 MG TAB (ELIQUIS) PO (09:15)
[2018-03-13] MEDS: SENOKOT S TAB PO (09:16)
[2018-03-13] MEDS: FUROSEMIDE 40 MG TAB PO (09:16)
[2018-03-13] MEDS: TAMSULOSIN 0.4 MG CAP PO (09:16)
[2018-03-13] MEDS: DIGOXIN 0.125 MG TAB PO (09:16)
[2018-03-13] MEDS: amLODIPine 10 MG TAB PO (09:19)
== END 2018-03-13 16:05 | disposition home health service (06) | DRG 481 ==
LOC: M PCU 03-03 00:22 → M MSPAV 03-07 20:11 → M ED 10:10 → M ED INP 14:55
PROC: 0QS704Z Reposition Left Upper Femur with Internal Fixation Device, Open Approach (ICD-10-PCS; principal; 2018-03-05 13:14)
PROC: 30233N1 Transfusion of Nonautologous Red Blood Cells into Peripheral Vein, Percutaneous Approach (ICD-10-PCS; 2018-03-05 13:14)
DX: S72.22XA Displaced subtrochanteric fracture of left femur, initial encounter for closed fracture (principal); J96.11 Chronic respiratory failure with hypoxia; J96.12 Chronic respiratory failure with hypercapnia; I50.32 Chronic diastolic (congestive) heart failure; I48.92 Unspecified atrial flutter; D62 Acute posthemorrhagic anemia; I48.91 Unspecified atrial fibrillation; I11.0 Hypertensive heart disease with heart failure; J44.9 Chronic obstructive pulmonary disease, unspecified; G47.33 Obstructive sleep apnea (adult) (pediatric); H26.9 Unspecified cataract; W07.XXXA Fall from chair, initial encounter; Y92.009 Unspecified place in unspecified non-institutional (private) residence as the place of occurrence of the external cause; H35.30 Unspecified macular degeneration; I35.0 Nonrheumatic aortic (valve) stenosis; R73.03 Prediabetes; J84.10 Pulmonary fibrosis, unspecified; R91.1 Solitary pulmonary nodule; I27.20 Pulmonary hypertension, unspecified; N40.0 Benign prostatic hyperplasia without lower urinary tract symptoms; Z99.81 Dependence on supplemental oxygen; Z79.01 Long term (current) use of anticoagulants; Z87.891 Personal history of nicotine dependence; Z90.49 Acquired absence of other specified parts of digestive tract; Z79.899 Other long term (current) drug therapy